=== PATIENT | female | born 1950 | race Caucasian/White ===

== ENCOUNTER 2021-08-17 13:22 | Outpatient (REF) | payer MEDICARE, OTHER, SELFPAY ==
--- NOTE | ~2021-08-17 | XR_ITS ---
EXAMINATION: XR CHEST CLINICAL INFORMATION: Chronic cough COMPARISON: None TECHNIQUE: 2 views of the chest were obtained. FINDINGS: The cardiac silhouette is slightly enlarged. Hilar and mediastinal contours are unremarkable. The lungs are clear. There is no pleural effusion or pneumothorax. There are mild degenerative changes of the spine. XR/XR chest 2V IMPRESSION: Slightly enlarged cardiac silhouette otherwise unremarkable exam.
[2021-08-17 15:09] LABS: MANUAL DIFF FLAG NO
[2021-08-17 15:17] LABS: Basophils Percent Auto 0.5 % (0-2); Eosinophils Absolute Auto 0.1 X10*3/uL (0.0-0.4); Hematocrit 41.9 % (37.0-47.0); Hemoglobin 13.8 g/dl (12.0-16.0); Imm Gran Abs Auto 0.01 X10*3/uL (0.00-0.03); Imm Gran Pct Auto 0.2 % (0.0-0.4); Lymphocytes Absolute Auto 2.5 X10*3/uL (1.2-4.9); Lymphocytes Percent Auto 40.1 % (20-40); Mean Corpuscular HGB Conc 32.9 g/dl (31.0-35.0); Mean Corpuscular Hemoglobin 29.9 pg (27.0-33.0); Mean Corpuscular Volume 90.7 fL (80.0-98.0); Mean Platelet Volume 10.1 fL (9.4-12.3); Monocytes Absolute Auto 0.4 X10*3/uL (0.1-1.2); Monocytes Percent Auto 6.7 % (2-11); Neutrophils Absolute Auto 3.2 x10*3/uL (2.0-8.3); Neutrophils Percent Auto 51.5 % (45-73); Platelet Count 281 X10*3/uL (160-400); Red Blood Count 4.62 X10*6/uL (4.20-5.50); Red Cell Distribution Width 13.6 % (11.0-16.0); White Blood Count 6.2 X10*3/uL (4.8-10.8)
[2021-08-17 16:09] LABS: Erythrocyte Sedimentation Rate 5 MM/HR (0-20)
[2021-08-18 11:40] LABS: IgA 88 mg/dL (70-320); IgG 906 mg/dL (600-1540); IgM 91 mg/dL (50-300)
== END 2021-08-17 13:23 | disposition home or self-care (01) ==
LOC: HO.XRAY 13:22
PROVIDERS: PCP Internal Medicine; Visit Provider Hospitalist
DX: J31.0 Chronic rhinitis (principal); J45.909 Unspecified asthma, uncomplicated; R05.3 Chronic cough
CPT/HCPCS: 36415; 71046; 82784; 82785; 85025; 85652; 86003; 99202

== ENCOUNTER 2021-08-31 13:42 | Outpatient (REF) | payer MEDICARE, OTHER, SELFPAY ==
--- NOTE | 2021-08-31 16:49 | PFT_ITS ---
FLOWS: FEV1 59% of predicted at 1.14 L. FVC 52% of predicted at 1.65 L. FEV1 to FVC ratio of 0.85. No bronchodilator response. LUNG VOLUMES: Total lung capacity 78% of predicted at 3.60 L. Residual volume 106% of predicted at 2.22 L. Slow vital capacity 55% of predicted at 1.38 L. Expiratory reserve volume 68% of predicted at 0.37 L. Diffusion capacity is mildly decreased, diffusion capacity corrects to normal after adjustment for alveolar ventilation. IMPRESSION: Moderate restrictive ventilatory defect with no bronchodilator response. This test result suggests underlying pulmonary parenchymal or vascular disease. Clinical correlation is advised. Liu Arnett MD AP/MODL / [id number]
== END 2021-08-31 13:43 | disposition home or self-care (01) ==
LOC: HO.RESP 13:42
PROVIDERS: PCP Internal Medicine; Visit Provider Hospitalist
DX: J31.0 Chronic rhinitis (principal); J45.909 Unspecified asthma, uncomplicated; R05.3 Chronic cough
CPT/HCPCS: 94060; 94727; 94729

== ENCOUNTER → 2021-09-14 14:14 | Outpatient (BNVA) | payer MEDICARE, OTHER, SELFPAY | PROVIDERS: PCP Internal Medicine; Visit Provider Hospitalist | DX: R05.3 Chronic cough (principal); J45.909 Unspecified asthma, uncomplicated; J31.0 Chronic rhinitis; J98.4 Other disorders of lung | CPT/HCPCS: 99212 ==

== ENCOUNTER 2021-12-04 10:32 | Outpatient (REF) | payer MEDICARE, OTHER, SELFPAY ==
--- NOTE | ~2021-12-04 | CT_ITS ---
EXAMINATION: CT CHEST WITHOUT CONTRAST CLINICAL INFORMATION: Previous chest x-ray August 2021 COMPARISON: Other disorder of lung TECHNIQUE: Multidetector volumetric CT imaging of the chest was done. Axial MIP volume rendering provided. Sagittal and coronal reformatted images were obtained. This CT examination was performed using dose optimization techniques as appropriate, variously including the following: *Automated exposure control *Adjustment of mA and/or kV according to patient size (this includes techniques or standardized protocols for targeted exams where dose is matched to indication/reason for exam; i.e. 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 There is focal bronchiectasis seen in the lateral segment of the right middle lobe. There is a more peripheral nodule measures 5 x 12 mm axial image 343 series 5. This may represent focal mucus plugging. Comparison with old exams if available is recommended. There is minimal scarring or subsegmental atelectasis at the lung bases. MEDIASTINUM: The heart is slightly enlarged. There is a very small pericardial effusion. The ascending thoracic aorta is upper normal in size measuring 4 cm. The aortic arch and descending thoracic aorta are normal in caliber. There are small thyroid nodules. By size criteria for the patient's age. Do not warrant follow-up. There are no enlarged hilar or mediastinal lymph nodes. PLEURA: There is no pleural effusion. No pleural mass or thickening. AXILLA: No lymphadenopathy. UPPER ABDOMEN: The stomach is not distended however there is question of diffuse wall thickening of the stomach. There may be a small posterior gastric diverticulum containing air axial image 49 series 3. OSSEOUS STRUCTURES: There are degenerative changes of the spine. CT/CT chest wo con IMPRESSION: Focal bronchiectasis in the lateral segment of the right middle lobe and more peripheral 5 x 12 mm nodule. This may represent focal mucus plugging or endobronchial soft tissue opacification. Comparison with old outside exams if available is recommended. Otherwise short-term follow-up chest CT should be considered in 3 months. Slightly enlarged heart. Upper normal-size thoracic aorta. Question gastric wall thickening. Clinical correlation and endoscopy or upper GI follow-up recommended. Fleischner guidelines were followed.
== END 2021-12-04 10:33 | disposition home or self-care (01) ==
LOC: HO.CT 10:32
PROVIDERS: Visit Provider Hospitalist
DX: J98.4 Other disorders of lung (principal); R05.3 Chronic cough; R94.2 Abnormal results of pulmonary function studies
CPT/HCPCS: 71250

== ENCOUNTER → 2022-02-08 14:41 | Outpatient (BNVA) | payer MEDICARE, OTHER, SELFPAY | PROVIDERS: PCP Internal Medicine; Visit Provider Hospitalist | DX: J31.0 Chronic rhinitis (principal); J45.909 Unspecified asthma, uncomplicated; J98.4 Other disorders of lung; R05.3 Chronic cough; R91.1 Solitary pulmonary nodule | CPT/HCPCS: 99212 ==

== ENCOUNTER → 2022-03-04 14:01 | Outpatient (BNVA) | payer MEDICARE, OTHER, SELFPAY | PROVIDERS: PCP Internal Medicine; Visit Provider Hospitalist | DX: J45.909 Unspecified asthma, uncomplicated (principal); J98.4 Other disorders of lung; R05.3 Chronic cough; R91.1 Solitary pulmonary nodule; E04.1 Nontoxic single thyroid nodule; K29.70 Gastritis, unspecified, without bleeding | CPT/HCPCS: 99212 ==

== ENCOUNTER → 2022-07-15 14:32 | Outpatient (BNVA) | payer MEDICARE, OTHER, SELFPAY | PROVIDERS: PCP Internal Medicine; Visit Provider Hospitalist | DX: R91.1 Solitary pulmonary nodule (principal); J31.0 Chronic rhinitis; J45.909 Unspecified asthma, uncomplicated; R05.3 Chronic cough; J98.4 Other disorders of lung; E04.1 Nontoxic single thyroid nodule; K29.70 Gastritis, unspecified, without bleeding | CPT/HCPCS: 99212 ==

== ENCOUNTER 2022-07-29 15:08 | Outpatient (REF) | payer MEDICARE, OTHER, SELFPAY ==
--- NOTE | ~2022-07-29 | CT_ITS ---
EXAMINATION: CT CHEST WITHOUT CONTRAST CLINICAL INFORMATION: Pulmonary nodule COMPARISON: Previous chest CT November 2021 TECHNIQUE: Multidetector volumetric CT imaging of the chest was done. Axial MIP volume rendering provided. Sagittal and coronal reformatted images were obtained. This CT examination was performed using dose optimization techniques as appropriate, variously including the following: *Automated exposure control *Adjustment of mA and/or kV according to patient size (this includes techniques or standardized protocols for targeted exams where dose is matched to indication/reason for exam; i.e. extremities or head) *Use of iterative reconstruction technique DLP: 163 mGy-cm FINDINGS: LUNGS: There is biapical pleural and parenchymal scarring. There is focal bronchiectasis in the lateral segment of the right middle lobe. There is a stable 5 x 12 mm more peripheral lateral segment right middle lobe nodule, question representing plugging. The lungs are otherwise clear. MEDIASTINUM: Upper normal-size heart. Small pericardial effusion. Upper normal-size ascending thoracic aorta measuring 4 cm. No hilar or mediastinal lymphadenopathy. CORONARY ARTERY CALCIFICATION: None visualized on this study. PLEURA: There is no pleural effusion. No pleural mass or thickening. AXILLA: No lymphadenopathy. UPPER ABDOMEN: Unremarkable. OSSEOUS STRUCTURES: Mild scoliosis and degenerative changes of the spine. CT/CT chest wo IV con IMPRESSION: Stable 5 x 12 mm lateral segment right middle lobe nodule probably representing mucous plugging and focal bronchiectasis. Stable biapical pleural and parenchymal scarring. Upper normal-size heart and ascending thoracic aorta. Small pericardial effusion. Fleischner guidelines were followed.
== END 2022-07-29 15:09 | disposition home or self-care (01) ==
LOC: HO.CT 15:08
PROVIDERS: PCP Internal Medicine; Visit Provider Hospitalist
DX: R91.1 Solitary pulmonary nodule (principal)
CPT/HCPCS: 71250

== ENCOUNTER → 2022-09-02 14:28 | Outpatient (BNVA) | payer MEDICARE, OTHER, SELFPAY | PROVIDERS: PCP Internal Medicine; Visit Provider Hospitalist | DX: J45.909 Unspecified asthma, uncomplicated (principal); R05.3 Chronic cough; R91.1 Solitary pulmonary nodule; J31.0 Chronic rhinitis; J98.4 Other disorders of lung; E04.1 Nontoxic single thyroid nodule; K29.70 Gastritis, unspecified, without bleeding | CPT/HCPCS: 99212 ==

== ENCOUNTER 2023-02-26 15:08 | Outpatient (REF) | payer MEDICARE, OTHER, SELFPAY ==
--- NOTE | ~2023-02-26 | CT_ITS ---
EXAMINATION: CT CHEST WITHOUT CONTRAST CLINICAL INFORMATION: Solitary pulmonary nodule COMPARISON: CT chest 07/29/2022, 12/04/2021. TECHNIQUE: Multidetector volumetric CT imaging of the chest was done. Axial MIP volume rendering provided. Sagittal and coronal reformatted images were obtained. This CT examination was performed using dose optimization techniques as appropriate, variously including the following: *Automated exposure control *Adjustment of mA and/or kV according to patient size (this includes techniques or standardized protocols for targeted exams where dose is matched to indication/reason for exam; i.e. 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 LUNGS: The lungs are well-expanded with irregular-appearing bronchiectasis, right middle lobe. Previously seen nodule or debris within this segment has significantly improved since 12/04/2021 with residual debris or nodule seen. It measures 4 mm on axial image 336/5. Focal atelectatic changes are seen in the left lung apex. There is bilateral apical scarring and pleural thickening. MEDIASTINUM: There is a 1 cm hypodense nodule, left thyroid lobe. Also visualized is a 3 mm calcification anterior to this nodule. The right thyroid lobe is normal. Central trachea and the bronchi are widely patent. Heart size and the great vessels are normal caliber. No pericardial effusion seen. Ascending aorta measures 3.8 x 3.6 cm. CORONARY ARTERY CALCIFICATION: Mild coronary artery calcifications are seen. PLEURA: There is no pleural effusion. No pleural mass or thickening. AXILLA: Shotty lymph nodes are seen in bilateral axilla. UPPER ABDOMEN: Visualized liver, spleen, pancreas and bilateral adrenal glands are unremarkable. OSSEOUS STRUCTURES: No aggressive lytic or sclerotic process seen. CT/CT chest wo IV con IMPRESSION: No change in bronchiectasis in the right middle lobe. Previous nodule or internal debris within the bronchus has significantly improved since 12/04/2021. No additional lesions seen. Left thyroid nodule. Recommend ultrasound correlation. Fleischner guidelines were followed.
== END 2023-02-26 15:09 | disposition home or self-care (01) ==
LOC: HO.CT 15:08
PROVIDERS: PCP Internal Medicine; Visit Provider Hospitalist
DX: R91.1 Solitary pulmonary nodule (principal)
CPT/HCPCS: 71250

== ENCOUNTER → 2023-04-11 14:36 | Outpatient (BNVA) | payer MEDICARE, OTHER, SELFPAY | PROVIDERS: PCP Internal Medicine; Visit Provider Hospitalist | DX: R05.3 Chronic cough (principal); J98.4 Other disorders of lung; J45.909 Unspecified asthma, uncomplicated; J31.0 Chronic rhinitis; D50.9 Iron deficiency anemia, unspecified; E04.1 Nontoxic single thyroid nodule; R91.1 Solitary pulmonary nodule | CPT/HCPCS: 99212 ==

== ENCOUNTER 2023-10-09 14:26 | Outpatient (AMB) | payer MEDICARE, OTHER, SELFPAY ==
[2023-10-09 14:35] VITALS: BP 122/62; PULSE 78; O2SAT 97; BMI 19.8
--- NOTE | 2023-10-09 14:35 | A.OFFVIS_ITS ---
Intake Vital Signs 10/09/23 14:35 Height 5 ft 1 in Weight 104 lb 11.513 oz BMI 19.8 BP 122/62 Blood Pressure Location Lt brachial Position Sitting Pulse 78 Pulse Source Pulse Oximeter Pulse Oximetry (%) 97 Oxygen Delivery Method Room Air Intake Visit Reasons: CT Chest Follow Up Intake Note: pt is here for follow up and states she is feeling good with breathing but back pain is not good. [employer] Ebs Developer Required: No Allergies No Known Allergies Allergy (Verified 10/09/23 14:38) HPI HPI Comments History of Present Illness Details The patient is a 73-year-old woman with a known history of chronic cough. Patient states that she has had a cough for about 10 years. The cough tends to be hacking in nature. Sometimes she does get some chest congestion and also tickle in her throat and chest. she has tried short-acting beta agonist without any significant improvement of her symptoms. She denies any significant reflux disease. She does feel that she does have a component of a postnasal drip. Her daughter her gotten her nasal saline rinse. But, the patient has not used it. On further questioning the patient does have a history of cardiac disease. Her transplanter orchid is in [place]. She has been on cardioprotective medications for about 10 years. She has been on metoprolol for the same duration. Explained to her the metoprolol as a beta-eddie and some table may be sensitive to the beta eddie specially if there is any evidence of hyperreactive airways and asthma. As part of workup she has had an x-ray without any acute disease. We personally reviewed from [facility]. She does have some healed rib fractures. In addition to that she did have blood work done. No evidence of any significant eosinophilia. The patient has not had formal pulmonary function studies nor allergy testing. 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 She denies any mold in her house although she may have some in the basement. The patient does describe of certain symptoms specially while eating which she may get short of breath. The patient also has a history of iron deficiency anemia. Therefore is reasonable to assess her for celiac disease as this may also precipitate respiratory symptoms. 09/14/2021 the patient is here for a pulmonary follow-up visit. The patient overall is doing about the same. She still having her episodic cough. Moderate severity. We did review her laboratory data without any significant allergic reactions or eosinophilia. We did review her pulmonary function studies together. It appears that she has evidence of small airways disease and therefore likely has a component of hyperreactive airways. She stills takes a beta-eddie and likely that is contributing to some potential bronchospasms and cough. However in addition to that the patient has evidence of a restrictive ventilatory defect with total lung capacity of 78% predicted. In addition to that her diffusing capacity is decreased moderately. the patient's chest x-ray demonstrated no acute disease therefore is really nondiagnostic. Based on her ongoing symptoms and her abnormal pulmonary function studies the patient will benefit from additional imaging. I do believe a CT scan of the chest would be for an and further addressing her ongoing symptoms and now with abnormal pulmonary function studies. 02/08/2022 the patient is here for a pulmonary follow-up visit. Patient overall continues to have her cough. The cough is intermittent and moderate severity. I did provide with rescue inhaler but she has not used it. I will have her nurse again teach her how to use it with a spacer to give her some reassurance an additional guidance. A nurse did spend some time with her answering all her questions and making sure she was comfortable with the inhaler. In the meantime we did review her CT scan of the chest which demonstrated a 1.2 cm pulmonary nodule. This is the only CT scan she has had so that we have no comparisons. Based on the solid nodule in the size and also her ongoing other symptoms of discomfort in her abdomen and also in her left hip it would help to get a PET scan to assess the metabolic activity of the nodule but also to assess if there is any involvement in other areas specially this is a malignant process. I will go ahead and request a PET scan at this time. Will follow-up after the PET scan. In the meantime I do want her to use the inhaler as needed as a trial to see if she has improvement after using the inhaler. also to note, the patient has been having some abdominal discomfort and the CT scan of the chest did demonstrate what appeared to be thickening of the stomach with a diverticulum. Therefore she was referred to GI and awaiting an evaluation. 03/04/2022 the patient is here for a pulmonary follow-up visit. Overall she is nervous about the PET scan results. I did reassure her that the pulmonary nodule did not show any FDG activity which is reassuring. We still need to follow it to make sure that there isn't any discrepancies. However the PET scan did demonstrate that she does have thyroid nodules that need to be further followed up. This made her anxious but she was reassured. explained to her that CT scan is not a good modality for the pulmonary nodules and will need ultrasound of the thyroid. This can be arranged by primary care or the patient may refer to endocrinology. in addition to that she was noted to have some hypermetabolic activity on the stomach area. She does have a GI doctor and hopefully they can evaluate that area further during her visit. In the meantime she does continue with reflux diet and continues the omeprazole which appears to be helping and also diminishing her cough. 07/15/2022 the patient is here for a pulmonary follow-up visit. After the PET scan the patient did follow-up with her primary care doctor and has been getting ultrasound of the thyroid. She also did follow-up with GI doctor regarding the above findings. Nothing concerning was found. The patient does have multiple nodules, 1 nodule measuring 1 cm and the other 1.2 cm. Patient also has large areas pulmonary density measuring 2.6 cm. The patient did have a reassuring PET scan without any significant FDG activity. However patient continues to have cough in addition to some chest discomfort. She does have a positive family history of lung cancer in the family. The patient will go ahead for a CT scan 6 months from her previous 1 which would be August 2022. in the meantime the patient been having episodes of coughing. We talked about trying to use the inhaler. She does have a short-acting beta agonist. She brought in with go to the extractions on how to use it. In addition to that she does complaint of postnasal drip which is typically with liquidy. It causes her to have cough as well. Moderate severity. We talked about the medications again try. She does not like to take anything longstanding. Therefore Atrovent nasal spray may be a good option to treat vasomotor rhinitis and dry up secretions. However, he needs to make sure she does not have any evidence of a coma. She does have a we I would doctor's appointment coming up soon. Therefore, I gave her a prescription and she can take it with her. If her eyes are okay that she can go ahead and start the ipratropium nasal spray as needed. We did a use weather. Patient is also having improving symptoms with reflux diet. The significant heartburn symptoms of she does have atopy. She is also diagnosed with osteopenia. Therefore, the patient needs to be of her omeprazole to avoid further bone loss. She has will try Pepcid. She will need to do with the reflux diet. 09/02/2022 the patient is here for a pulmonary follow-up visit. Overall the patient has been feeling well. She continues to have episodic cough. Usually nonproductive in nature. She did bring her inhaler in we were able to teacher again her use it correctly. She is having some issues with her spacer. Therefore she will use the inhaler without 1. she is not interested in taking any come medications at this time. We again looked at her recent CT scan of the chest that she has had in July 2022. It appears that she does have a areas of mosaic pattern in her trapping. Explained to her that this is consistent w ith her small airways disease and component of wheezing in cough variant asthma. On examination she did have wheezing. I did encourage her to use the inhaler. After she use the rescue inhaler she had increased cough. Explained to her that does the airways trying to open further from the medication. Her symptoms did improve after using the inhaler. We did review her CT scan also demonstrating stable pulmonary nodules which is reassuring. She has is elongated density in the right middle lobe which is PET negative. Although it is intermediate size. Could be mucus impaction of the airway. The patient also has some bronchiectatic changes. Will go ahead and provide her with a flutter valve to see if she can provide better bronchopulmonary hygiene and mucus clearance. The patient is concerned that she could have cancer. I have reassured her at lease in the CT scan that there is nothing that is progressing changing. Due to the size of the right middle lobe density will plan to repeat the CT scan in 6 months time. 04/11/2023 the patient is here for pulmonary follow-up visit. Overall she is doing well from a respiratory status. The sciatic cough. Mild intermittent. Has not had to use her rescue inhaler. The patient did need to have biopsy of the thyroid nodule. She is awaiting the results. In the meantime she also had a CT scan of the chest which was personally by me from February 2023. It appears some of the nodular densities have improved, although still present. She still has bronchiectatic changes. Will plan to repeat the CT scan in 1 year. 10/09/2023 the patient is here for pulmonary follow-up visit. Overall the patient continues to be able to same. She still complains of a chronic cough. Thvf-ty-weauhhic severity. At times is productive. Does not really respond to the rescue inhaler. Denies any fevers or chills. She denies any chest pains. We did review her last CT scan of the chest from February 2023 with a describe some degree of bronchiectatic changes. Her nodular densities are improve which is reassuring. The patient does work on her reflux diet. Will provide her with a Acapella valve for chest physical therapy. If this is effective than she can continue the bronchopulmonary hygiene. Otherwise the patient should try a course of azithromycin 3 times a week to see if this provides some improvement of her symptoms in view of the bronchiectasis. [facility] Medical History (Updated 10/13/23 @ 22:51 by Nelson Ruiz MD) Bronchiectasis Gastritis Thyroid nodule Osteoporosis Hypertension Abnormal PFTs (pulmonary function tests) Chronic restrictive lung disease Chronic rhinitis Asthma Chronic cough Surgical History (Updated 02/07/22 @ 11:12 by Rody Waters PA-C) History of tonsillectomy History of colonoscopy Family History (Updated 02/07/22 @ 11:14 by Rody Waters PA-C) Father CVA (cerebral vascular accident) Hypertension Mother Colon polyps Breast cancer Brother Prostate cancer Social History Patient Tobacco Use Status: Never used Tobacco Review of Systems Const Denies night sweats ENT Denies change in voice, Denies lip swelling, Denies mouth pain, Reports nasal congestion, Reports nasal discharge, Reports post nasal drip and Denies tongue swelling Card Denies chest pain Resp Reports cough GI Reports dyspepsia and Reports heartburn Musc Denies no additional complaints Neuro Denies Neuro-related abnormal movements Psych Denies no additional complaints Popeye/Lymph Denies easy bleeding and Denies lymphadenopathy Aller/Immun Denies lip swelling and Denies tongue swelling Physical Exam Vital Signs: Last Vital Signs Pulse 78 10/09/23 14:35 BP 122/62 10/09/23 14:35 Pulse Ox 97 10/09/23 14:35 Oxygen Delivery Method Room Air 10/09/23 14:35 BMI result Body Mass Index 19.8 Const General: alert HEENT General nose exam: Abnormal mucous membranes and turbinates present and Nasal discharge present Throat: Yes cobblestoning Neck Neck: Yes normal visual inspection, Yes full ROM and Yes no lymphadenopathy Chest Chest palpation & inspection: normal inspection of the chest Resp Effort & Inspection: normal respiratory effort Auscultation: clear to auscultation bilaterally and no wheezes Cardio Rate: regular rate Rhythm: regular rhythm Heart sounds: S1 normal heart sound present and S2 normal heart sound present GI Palpation (GI): Soft to palpation and nontender Auscultation: normal bowel sounds Skin General skin exam: rashes and/or lesions noted Results Reviewed Results Reviewed: [address] [address] [address] Scan Report Signed Patient: Yesesnia Burt MR#: [id number] : 1950 Acct:[id number] Age/Sex: 73 / F ADM Date: 02/26/23 Loc: HO.CT Attending Dr: Nelson Ruiz MD Ordering Physician: Nelson Ruiz MD Date of Service: 02/26/23 Procedure(s): CT chest wo IV con Accession Number(s): [id number] cc: Nelson Ruiz MD~ EXAMINATION: CT CHEST WITHOUT CONTRAST CLINICAL INFORMATION: Solitary pulmonary nodule COMPARISON: CT chest 07/29/2022, 12/04/2021. TECHNIQUE: Multidetector volumetric CT imaging of the chest was done. Axial MIP volume rendering provided. Sagittal and coronal reformatted images were obtained. This CT examination was performed using dose optimization techniques as appropriate, variously including the following: *Automated exposure control *Adjustment of mA and/or kV according to patient size (this includes techniques or standardized protocols for targeted exams where dose is matched to indication/reason for exam; i.e. extremities or head) *Use of iterative reconstruction technique DLP: 84 mGy-cm FINDINGS: WASTE COLLECTOR: Well-inflated lungs. LUNGS: The lungs are well-expanded with irregular-appearing bronchiectasis, right middle lobe. Previously seen nodule or debris within this segment has significantly improved since 12/04/2021 with residual debris or nodule seen. It measures 4 mm on axial image 336/5. Focal atelectatic changes are seen in the left lung apex. There is bilateral apical scarring and pleural thickening. MEDIASTINUM: There is a 1 cm hypodense nodule, left thyroid lobe. Also visualized is a 3 mm calcification anterior to this nodule. The right thyroid lobe is normal. Central trachea and the bronchi are widely patent. Heart size and the great vessels are normal caliber. No pericardial effusion seen. Ascending aorta measures 3.8 x 3.6 cm. CORONARY ARTERY CALCIFICATION: Mild coronary artery calcifications are seen. PLEURA: There is no pleural effusion. No pleural mass or thickening. AXILLA: Shotty lymph nodes are seen in bilateral axilla. UPPER ABDOMEN: Visualized liver, spleen, pancreas and bilateral adrenal glands are unremarkable. OSSEOUS STRUCTURES: No aggressive lytic or sclerotic process seen. CT/CT chest wo IV con IMPRESSION: No change in bronchiectasis in the right middle lobe. Previous nodule or internal debris within the bronchus has significantly improved since 12/04/2021. No additional lesions seen. Left thyroid nodule. Recommend ultrasound correlation. Fleischner guidelines were followed. 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[employer] Handler: JEROME Assessment & Plan Assessment & Plan (1) Right middle lobe pulmonary nodule: Comment: (5x12mm on 11/[address]; significant improvement in 02/2023 Code(s): R91.1 - Solitary pulmonary nodule (2) Chronic rhinitis: Code(s): J31.0 - Chronic rhinitis (3) Asthma: Code(s): J45.909 - Unspecified asthma, uncomplicated Qualifiers: Asthma complication type: uncomplicated Asthma persistence: persistent Asthma severity: moderate Qualified Code(s): J45.40 - Moderate persistent asthma, uncomplicated (4) Chronic cough: Code(s): R05.3 - Chronic cough (5) Chronic restrictive lung disease: Code(s): J98.4 - Other disorders of lung (6) Thyroid nodule: Code(s): E04.1 - Nontoxic single thyroid nodule (7) Bronchiectasis: Code(s): J47.9 - Bronchiectasis, uncomplicated Qualifiers: Bronchiectasis type: uncomplicated Qualified Code(s): J47.9 - Bronchiectasis, uncomplicated Plan HOB elevated PASCUAL as needed CPT with acapella valve relux diet trial azithromycin MWF F/U 4-6 months Medications: New azithromycin Take 1 tablet on Friday/Friday/Friday 250 mg PO 3XW 28 days 12 tabs 0RF K21.9 - Gastro-esophageal reflux disease without esophagitis Coding Level of Care Code Est Pt Level 4 (30532) Diagnoses Right middle lobe pulmonary nodule R91.1 Chronic rhinitis J31.0 Moderate persistent asthma without complication J45.40 Asthma complication type: uncomplicated Asthma persistence: persistent Asthma severity: moderate Chronic cough R05.3 Chronic restrictive lung disease J98.4 Thyroid nodule E04.1 Bronchiectasis without complication J47.9 Bronchiectasis type: uncomplicated Time Spent (min) 17
== END 2023-10-09 15:03 | disposition home or self-care (01) ==
PROVIDERS: PCP Internal Medicine; Visit Provider Hospitalist
DX: R91.1 Solitary pulmonary nodule (principal); J31.0 Chronic rhinitis; J45.40 Moderate persistent asthma, uncomplicated; R05.3 Chronic cough; J98.4 Other disorders of lung; E04.1 Nontoxic single thyroid nodule; J47.9 Bronchiectasis, uncomplicated
CPT/HCPCS: 99214

== ENCOUNTER → 2023-10-09 14:26 | Outpatient (BNVA) | payer MEDICARE, OTHER, SELFPAY | PROVIDERS: PCP Internal Medicine; Visit Provider Hospitalist | DX: R91.1 Solitary pulmonary nodule (principal); J31.0 Chronic rhinitis; J45.40 Moderate persistent asthma, uncomplicated; J98.4 Other disorders of lung; J47.9 Bronchiectasis, uncomplicated; R05.3 Chronic cough; E04.1 Nontoxic single thyroid nodule | CPT/HCPCS: 99212 ==

== ENCOUNTER 2024-04-23 08:45 | Outpatient (REF) | payer MEDICARE, OTHER, SELFPAY ==
--- NOTE | ~2024-04-23 | CT_ITS ---
EXAMINATION: CT CHEST WITHOUT CONTRAST CLINICAL INFORMATION: Follow-up pulmonary nodule. COMPARISON: Prior chest CT examinations, most recently 02/26/2023. TECHNIQUE: Multidetector volumetric CT imaging of the chest was done. Axial MIP volume rendering provided. Sagittal and coronal reformatted images were obtained. This CT examination was performed using dose optimization techniques as appropriate, variously including the following: *Automated exposure control *Adjustment of mA and/or kV according to patient size (this includes techniques or standardized protocols for targeted exams where dose is matched to indication/reason for exam; i.e. extremities or head) *Use of iterative reconstruction technique DLP: 72 mGy-cm FINDINGS: SUPERVISOR FILLING AND PACKING: The lungs are symmetrically well-expanded and grossly clear. LUNGS: There is biapical pleural and parenchymal scarring. There is a stable focal bronchiectasis within the lateral segment of the right middle lobe. No new nodule, mass, infiltrate or groundglass opacity is seen. There is no generalized increase in peripheral septal markings. There is a mild mosaic attenuation pattern. There is mild generalized small airway thickening. The central airways appear patent. MEDIASTINUM: The thyroid is unremarkable. The ascending thoracic aorta is ectatic, measuring 3.9 x 3.9 cm (3:29). No huma aneurysm formation is seen. There is mild atherosclerotic calcification of the aortic arch. No sizable mediastinal or hilar lymphadenopathy is seen. CORONARY ARTERY CALCIFICATION: Very mild. PLEURA: There is no pleural effusion. No pleural mass or thickening. AXILLA: No lymphadenopathy. UPPER ABDOMEN: Unremarkable. OSSEOUS STRUCTURES: There is multi-level cervicothoracic spondylosis. No acute or aggressive osseous abnormality is seen. CT/CT chest wo IV con IMPRESSION: 1. There is a stable focus of bronchiectatic change within the lateral segment of the right middle lobe. 2. No pulmonary nodule, mass, infiltrate or groundglass opacity is seen. 3. There is a mild mosaic attenuation pattern, and mild generalized small airway thickening is seen, suggesting small airways disease secondary to an infectious or inflammatory etiology. Please correlate clinically. 4. There is ectasia of the ascending thoracic aorta, without huma aneurysm formation. 5. There is very mild coronary artery atherosclerotic calcification. 6. There is multi-level cervicothoracic spondylosis. No aggressive osseous lesion is seen. Fleischner guidelines were followed.
== END 2024-04-23 08:46 | disposition home or self-care (01) ==
LOC: HO.CT 08:45
PROVIDERS: PCP Internal Medicine; Visit Provider Hospitalist
DX: R91.1 Solitary pulmonary nodule (principal)
CPT/HCPCS: 71250

== ENCOUNTER 2024-05-11 09:43 | Outpatient (AMB) | payer MEDICARE, OTHER, SELFPAY ==
[2024-05-11 09:50] VITALS: BP 132/70; PULSE 64; O2SAT 99; BMI 19.8
--- NOTE | 2024-05-11 09:50 | A.OFFVIS_ITS ---
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 Patient states that she has had a cough for about 10 years. The cough tends to be hacking in nature. Sometimes she does get some chest congestion and also tickle in her throat and chest. she has tried short-acting beta agonist without any significant improvement of her symptoms. She denies any significant reflux disease. She does feel that she does have a component of a postnasal drip. Her daughter her gotten her nasal saline rinse. But, the patient has not used it. On further questioning the patient does have a history of cardiac disease. 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 She has been on cardioprotective medications for about 10 years. She has been on metoprolol for the same duration. Explained to her the metoprolol as a beta-eddie and some table may be sensitive to the beta eddie specially if there is any evidence of hyperreactive airways and asthma. As part of workup she has had an x-ray without any acute disease. We personally reviewed from [facility]. She does have some healed rib fractures. In addition to that she did have blood work done. No evidence of any significant eosinophilia. The patient has not had formal pulmonary function studies nor allergy testing. 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 She denies any mold in her house although she may have some in the basement. The patient does describe of certain symptoms specially while eating which she may get short of breath. The patient also has a history of iron deficiency anemia. Therefore is reasonable to assess her for celiac disease as this may also precipitate respiratory symptoms. 09/14/2021 the patient is here for a pulmonary follow-up visit. The patient overall is doing about the same. She still having her episodic cough. Moderate severity. We did review her laboratory data without any significant allergic reactions or eosinophilia. We did review her pulmonary function studies together. It appears that she has evidence of small airways disease and therefore likely has a component of hyperreactive airways. She stills takes a beta-eddie and likely that is contributing to some potential bronchospasms and cough. However in addition to that the patient has evidence of a restrictive ventilatory defect with total lung capacity of 78% predicted. In addition to that her diffusing capacity is decreased moderately. the patient's chest x-ray demonstrated no acute disease therefore is really nondiagnostic. Based on her ongoing symptoms and her abnormal pulmonary function studies the patient will benefit from additional imaging. I do believe a CT scan of the chest would be for an and further addressing her ongoing symptoms and now with abnormal pulmonary function studies. 02/08/2022 the patient is here for a pulmonary follow-up visit. Patient overall continues to have her cough. The cough is intermittent and moderate severity. I did provide with rescue inhaler but she has not used it. I will have her nurse again teach her how to use it with a spacer to give her some reassurance an additional guidance. A nurse did spend some time with her answering all her questions and making sure she was comfortable with the inhaler. In the meantime we did review her CT scan of the chest which demonstrated a 1.2 cm pulmonary nodule. This is the only CT scan she has had so that we have no comparisons. Based on the solid nodule in the size and also her ongoing other symptoms of discomfort in her abdomen and also in her left hip it would help to get a PET scan to assess the metabolic activity of the nodule but also to assess if there is any involvement in other areas specially this is a malignant process. I will go ahead and request a PET scan at this time. Will follow-up after the PET scan. In the meantime I do want her to use the inhaler as needed as a trial to see if she has improvement after using the inhaler. also to note, the patient has been having some abdominal discomfort and the CT scan of the chest did demon strate what appeared to be thickening of the stomach with a diverticulum. Therefore she was referred to GI and awaiting an evaluation. 03/04/2022 the patient is here for a pulmonary follow-up visit. Overall she is nervous about the PET scan results. I did reassure her that the pulmonary nodule did not show any FDG activity which is reassuring. We still need to follow it to make sure that there isn't any discrepancies. However the PET scan did demonstrate that she does have thyroid nodules that need to be further followed up. This made her anxious but she was reassured. explained to her that CT scan is not a good modality for the pulmonary nodules and will need ultrasound of the thyroid. This can be arranged by primary care or the patient may refer to endocrinology. in addition to that she was noted to have some hypermetabolic activity on the stomach area. She does have a GI doctor and hopefully they can evaluate that area further during her visit. In the meantime she does continue with reflux diet and continues the omeprazole which appears to be helping and also diminishing her cough. 07/15/2022 the patient is here for a pulmonary follow-up visit. After the PET scan the patient did follow-up with her primary care doctor and has been getting ultrasound of the thyroid. She also did follow-up with GI doctor regarding the above findings. Nothing concerning was found. The patient does have multiple nodules, 1 nodule measuring 1 cm and the other 1.2 cm. Patient also has large areas pulmonary density measuring 2.6 cm. The patient did have a reassuring PET scan without any significant FDG activity. However patient continues to have cough in addition to some chest discomfort. She does have a positive family history of lung cancer in the family. The patient will go ahead for a CT scan 6 months from her previous 1 which would be August 2022. in the meantime the patient been having episodes of coughing. We talked about trying to use the inhaler. She does have a short-acting beta agonist. She brought in with go to the extractions on how to use it. In addition to that she does complaint of postnasal drip which is typically with liquidy. It causes her to have cough as well. Moderate severity. We talked about the medications again try. She does not like to take anything longstanding. Therefore Atrovent nasal spray may be a good option to treat vasomotor rhinitis and dry up secretions. However, he needs to make sure she does not have any evidence of a coma. She does have a we I would doctor's appointment coming up soon. Therefore, I gave her a prescription and she can take it with her. If her eyes are okay that she can go ahead and start the ipratropium nasal spray as needed. We did a use weather. Patient is also having improving symptoms with reflux diet. The significant heartburn symptoms of she does have atopy. She is also diagnosed with osteopenia. Therefore, the patient needs to be of her omeprazole to avoid further bone loss. She has will try Pepcid. She will need to do with the reflux diet. 09/02/2022 the patient is here for a pulmonary follow-up visit. Overall the patient has been feeling well. She continues to have episodic cough. Usually nonproductive in nature. She did bring her inhaler in we were able to teacher again her use it correctly. She is having some issues with her spacer. The refore she will use the inhaler without 1. she is not interested in taking any come medications at this time. We again looked at her recent CT scan of the chest that she has had in July 2022. It appears that she does have a areas of mosaic pattern in her trapping. Explained to her that this is consistent with her small airways disease and component of wheezing in cough variant asthma. On examination she did have wheezing. I did encourage her to use the inhaler. After she use the rescue inhaler she had increased cough. Explained to her that does the airways trying to open further from the medication. Her symptoms did improve after using the inhaler. We did review her CT scan also demonstrating stable pulmonary nodules which is reassuring. She has is elongated density in the right middle lobe which is PET negative. Although it is intermediate size. Could be mucus impaction of the airway. The patient also has some bronchiectatic changes. Will go ahead and provide her with a flutter valve to see if she can provide better bronchopulmonary hygiene and mucus clearance. The patient is concerned that she could have cancer. I have reassured her at lease in the CT scan that there is nothing that is progressing changing. Due to the size of the right middle lobe density will plan to repeat the CT scan in 6 months time. 04/11/2023 the patient is here for pulmonary follow-up visit. Overall she is doing well from a respiratory status. The sciatic cough. Mild intermittent. Has not had to use her rescue inhaler. The patient did need to have biopsy of the thyroid nodule. She is awaiting the results. In the meantime she also had a CT scan of the chest which was personally by me from February 2023. It appears some of the nodular densities have improved, although still present. She still has bronchiectatic changes. Will plan to repeat the CT scan in 1 year. 10/09/2023 the patient is here for pulmonary follow-up visit. Overall the patient continues to be able to same. She still complains of a chronic cough. Azyl-yi-pnehhgsc severity. At times is productive. Does not really respond to the rescue inhaler. Denies any fevers or chills. She denies any chest pains. We did review her last CT scan of the chest from February 2023 with a describe some degree of bronchiectatic changes. Her nodular densities are improve which is reassuring. The patient does work on her reflux diet. Will provide her with a Acapella valve for chest physical therapy. If this is effective than she can continue the bronchopulmonary hygiene. Otherwise the patient should try a course of azithromycin 3 times a week to see if this provides some improvement of her symptoms in view of the bronchiectasis. 05/11/2024 the patient is here for a pulmonary follow-up visit. She is about the same. She is still coughing some chest congestion. Moderate severity. Although she has not been using the rescue inhaler. She does find the Acapella valve a very effective. She also did not take antibiotics. Seems to be more congested today. She did have a CT scan of the chest which we personally reviewed. No significant changes in the bronchiectatic changes. No nodular densities to be concerned about. At this point to believe that she should try the azithromycin based on her bronchiectasis and mucous plugging. I also did instruct her how to use her rescue inhaler and she can use at once or twice a day followed by the Acapella valve for proper chest physical therapy. She also does complain of a postnasal drip. Thin in consistency. Ykfi-ax-vuioigxh severity. Typically worse in the morning. This point she does not want to take too many medications will just continue to monitor that. [facility] Medical History (Updated 10/13/23 @ 22:51 by Nelson Ruiz MD) Bronchiectasis Gastritis Thyroid nodule Osteoporosis Hypertension Abnormal PFTs (pulmonary function tests) Chronic restrictive lung disease Chronic rhinitis Asthma Chronic cough Surgical History (Updated 02/07/22 @ 11:12 by Rody Waters PA-C) History of tonsillectomy History of colonoscopy Family History (Updated 02/07/22 @ 11:14 by Rody M May, PA-C) Father CVA (cerebral vascular accident) Hypertension Mother Colon polyps Breast cancer Brother Prostate cancer Social History Patient Tobacco Use Status: Never used Tobacco Review of Systems Const Denies night sweats ENT Denies change in voice, Denies lip swelling, Denies mouth pain, Reports nasal congestion, Reports nasal discharge, Reports post nasal drip and Denies tongue swelling Card Denies chest pain Resp Reports cough GI Reports dyspepsia and Reports heartburn Musc Denies no additional complaints Neuro Denies Neuro-related abnormal movements Psych Denies no additional complaints Popeye/Lymph Denies easy bleeding and Denies lymphadenopathy Aller/Immun Denies lip swelling and Denies tongue swelling Physical Exam Vital Signs: Last Vital Signs Pulse 64 05/11/24 09:50 BP 132/70 05/11/24 09:50 Pulse Ox 99 05/11/24 09:50 Oxygen Delivery Method Room Air 05/11/24 09:50 BMI result Body Mass Index 19.8 Const General: alert HEENT General nose exam: Abnormal mucous membranes and turbinates present and Nasal discharge present Throat: Yes cobblestoning Neck Neck: Yes normal visual inspection, Yes full ROM and Yes no lymphadenopathy Chest Chest palpation & inspection: normal inspection of the chest Resp Effort & Inspection: normal respiratory effort Auscultation: no wheezes Cardio Rate: regular rate Rhythm: regular rhythm Heart sounds: S1 normal heart sound present and S2 normal heart sound present GI Palpation (GI): Soft to palpation and nontender Auscultation: normal bowel sounds Skin General skin exam: rashes and/or lesions noted Assessment & Plan Assessment & Plan (1) Right middle lobe pulmonary nodule: Comment: (5x12mm on 11/[address]; significant improvement in 02/2023 Code(s): R91.1 - Solitary pulmonary nodule Category: Medical (2) Chronic rhinitis: Code(s): J31.0 - Chronic rhinitis Category: Medical (3) Asthma: Code(s): J45.909 - Unspecified asthma, uncomplicated Category: Medical Qualifiers: Asthma complication type: uncomplicated Asthma persistence: persistent Asthma severity: moderate Qualified Code(s): J45.40 - Moderate persistent asthma, uncomplicated (4) Chronic cough: Code(s): R05.3 - Chronic cough Category: Medical (5) Chronic restrictive lung disease: Code(s): J98.4 - Other disorders of lung Category: Medical (6) Thyroid nodule: Code(s): E04.1 - Nontoxic single thyroid nodule Category: Medical (7) Bronchiectasis: Code(s): J47.9 - Bronchiectasis, uncomplicated Category: Medical Qualifiers: Bronchiectasis type: uncomplicated Qualified Code(s): J47.9 - Bronchiectasis, uncomplicated Plan HOB elevated PASCUAL as needed CPT with acapella valve Start Azithromycin MWF x 3-4 weeks, then stop relux diet F/U 6-8 months Medications: Refilled azithromycin Take 1 tablet on Friday/Friday/Friday 250 mg PO 3XW 12 tabs 0RF 28 days K21.9 - Gastro-esophageal reflux disease without esophagitis albuterol sulfate 90 mcg/actuation 2 inhalations inhalation Q6H PRN 18 grams 12RF shortness of breath or wheezing 30 days J44.9 - Chronic obstructive pulmonary disease, unspecified Coding Level of Care Code Est Pt Level 4 (76276) Diagnoses Right middle lobe pulmonary nodule R91.1 Chronic rhinitis J31.0 Moderate persistent asthma without complication J45.40 Asthma complication type: uncomplicated Asthma persistence: persistent Asthma severity: moderate Chronic cough R05.3 Chronic restrictive lung disease J98.4 Thyroid nodule E04.1 Bronchiectasis without complication J47.9 Bronchiectasis type: uncomplicated Time Spent (min) 17
== END 2024-05-11 10:20 | disposition home or self-care (01) ==
PROVIDERS: PCP Internal Medicine; Visit Provider Hospitalist
DX: R91.1 Solitary pulmonary nodule (principal); J31.0 Chronic rhinitis; J45.40 Moderate persistent asthma, uncomplicated; R05.3 Chronic cough; J98.4 Other disorders of lung; E04.1 Nontoxic single thyroid nodule; J47.9 Bronchiectasis, uncomplicated
CPT/HCPCS: 99214

== ENCOUNTER → 2024-05-11 09:43 | Outpatient (BNVA) | payer MEDICARE, OTHER, SELFPAY | PROVIDERS: PCP Internal Medicine; Visit Provider Hospitalist | DX: R91.1 Solitary pulmonary nodule (principal); R05.3 Chronic cough; J45.40 Moderate persistent asthma, uncomplicated; J31.0 Chronic rhinitis; J98.4 Other disorders of lung; J47.9 Bronchiectasis, uncomplicated; E04.1 Nontoxic single thyroid nodule | CPT/HCPCS: 99212 ==

== ENCOUNTER 2024-10-11 10:41 | Outpatient (AMB) | payer MEDICARE, OTHER, SELFPAY ==
--- OUTSIDE RECORDS SUMMARY | 2024-10-11 10:43 | XMS_ITS ---
Author Organization [facility] Address [address] [place] [address] Care Team Providers Care Load Out Worker Name Role Phone Arvind ARRIAGA, Stephanie Primary Care Provider Unavail able Agustín Cannon Unavailable [phone] REASON FOR VISIT would like a call Encounters Encounter Location Date Provider Diagnosis [facility] [address] [place] [address] 06/08/2024 Agustín Cannon PLAN OF TREATMENT No Information
--- OUTSIDE RECORDS SUMMARY | 2024-10-11 10:43 | XMS_ITS ---
Author Organization [facility] Address [address] [place] [address] Care Team Providers Care Street And Building Decorator Name Role Phone Arvind ARRIAGA, Stephanie Primary Care Provider Unavail able Agustín Cannon Unavailable [phone] REASON FOR VISIT Exam, Stress Test & ECHO Encounters Encounter Location Date Provider Diagnosis [facility] [place] [address] [place] [address] 09/27/2024 Agustín Cannon PLAN OF TREATMENT No Information
--- OUTSIDE RECORDS SUMMARY | 2024-10-11 10:43 | XMS_ITS ---
Author Organization [facility] Address [address] [place] [address] Care Team Providers Care Chemist Physical Name Role Phone Arvind ARRIAGA, Stephanie Primary Care Provider Unavail able Agustín Cannon Unavailable [phone] Encounters Encounter Location Date Provider Diagnosis [facility] [address] [place] [address] 09/27/2024 Agustín Cannon PLAN OF TREATMENT No Information
--- OUTSIDE RECORDS SUMMARY | 2024-10-11 10:44 | XMS_ITS | Patient Health Record ---
Author Organization [facility] Address [address] [place] [address] Care Team Providers Care Baker Name Role Phone Arvind ARRIAGA Stephanie Primary Care Provider Unavail Agustín Pierce Unavailable [phone] ALLERGIES No Known Allergies REASON FOR REFERRAL No Information MEDICATIONS Medication SIG (Take, Route, Frequency, Duration) Notes Start Date End Date Status Famotidine 40 MG 1 tablet Orally QPM Active Alendronate Sodium 70 MG 1 tablet Orally QWeekly Active amLODIPine Besylate 2.5 MG TAKE 1 TABLET BY MOUTH EVERY MORNING for 90 Active Metoprolol Succinate ER 50 MG TAKE 1 TABLET BY MOUTH DAILY for 90 Active SOCIAL HISTORY Sex Assigned At : Social History Observation Description Sex Assigned At Unknown PROBLEMS Problem Type ICD Code Onset Dates Problem Status W/U Status Risk SNOMED Code Notes Problem Hypertension Unspecified (401.9) Active confirmed Low Essential hypertension (09953332) Problem Essential hypertension (I10) Active confirmed 66992025 Problem Nonrheumatic mitral (valve) insufficiency (I34.0) Active confirmed Mitral valve disorder (20766543) Problem Acquired insufficiency of aortic valve (I35.1) Active confirmed 98118282 Problem Osteoporosis (M81.0) Active confirmed Osteoporosis (16075981) Problem PVCs (premature ventricular contractions) (I49.3) Active confirmed 091453761 Encounters Encounter Location Date Provider Diagnosis [facility] [address] [place] [address] 06/08/2024 Agustín Cannon [facility] [address] [place] [address] 09/27/2024 Agustín Cannon [facility] - [address] [address] 09/27/2024 Agustín Cannon PLAN OF TREATMENT Pending Test Test Name Order Date Echocardiogram 09/24/2023 Echocardiogram 09/23/2022 Echocardiogram 09/20/2021 Echocardiogram 09/14/2020 Echocardiogram 09/15/2019 Echocardiogram 09/14/2018 Echocardiogram 09/11/2017 Echocardiogram 02/05/2016 Echocardiogram 01/20/2015 Exercise Tolerence Test (ETT) 01/20/2015 Exercise Tolerence Test (ETT) 02/05/2016 Exercise Tolerence Test (ETT) 09/11/2017 Exercise Tolerence Test (ETT) 09/14/2018 Exercise Tolerence Test (ETT) 09/15/2019 Exercise Tolerence Test (ETT) 09/14/2020 Exercise Tolerence Test (ETT) 09/20/2021 Exercise Tolerence Test (ETT) 09/24/2023 Exercise Tolerence Test (ETT) 09/23/2022 Atria STRESS 09/20/2021 Atria STRESS 09/23/2022 Atria STRESS 09/24/2023 Atria STRESS 09/14/2020 Atria STRESS 09/15/2019 Atria STRESS 09/14/2018 Atria STRESS 09/11/2017 Atria STRESS 02/05/2016 Atria STRESS 01/20/2015 Insurance Providers Payer Name Payer Address Payer Phone Subscriber Number Group Number Insured Name Patient Relationship to Insured Coverage Start Date Coverage End Date MEDICARE [address] [place] [address] [id number] Yessenia Burt Self - patient is the insured [facility] Indemnity Plan [address] [place] [address] [id number] Yessenia Burt Self - patient is the insured MEDICAL (GENERAL) HISTORY Medical History History ICD Code Hypertension Osteoporosis Reactive Airways Disease
[2024-10-11 10:47] VITALS: BP 132/70; PULSE 75; O2SAT 97; BMI 20.2
--- NOTE | 2024-10-11 10:47 | MHC.OFFVIS ---
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 Patient states that she has had a cough for about 10 years. The cough tends to be hacking in nature. Sometimes she does get some chest congestion and also tickle in her throat and chest. she has tried short-acting beta agonist without any significant improvement of her symptoms. She denies any significant reflux disease. She does feel that she does have a component of a postnasal drip. Her daughter her gotten her nasal saline rinse. But, the patient has not used it. On further questioning the patient does have a history of cardiac disease. 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 She has been on cardioprotective medications for about 10 years. She has been on metoprolol for the same duration. Explained to her the metoprolol as a beta-eddie and some table may be sensitive to the beta eddie specially if there is any evidence of hyperreactive airways and asthma. As part of workup she has had an x-ray without any acute disease. We personally reviewed from [facility]. She does have some healed rib fractures. In addition to that she did have blood work done. No evidence of any significant eosinophilia. The patient has not had formal pulmonary function studies nor allergy testing. 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 She denies any mold in her house although she may have some in the basement. The patient does describe of certain symptoms specially while eating which she may get short of breath. The patient also has a history of iron deficiency anemia. Therefore is reasonable to assess her for celiac disease as this may also precipitate respiratory symptoms. 09/14/2021 the patient is here for a pulmonary follow-up visit. The patient overall is doing about the same. She still having her episodic cough. Moderate severity. We did review her laboratory data without any significant allergic reactions or eosinophilia. We did review her pulmonary function studies together. It appears that she has evidence of small airways disease and therefore likely has a component of hyperreactive airways. She stills takes a beta-eddie and likely that is contributing to some potential bronchospasms and cough. However in addition to that the patient has evidence of a restrictive ventilatory defect with total lung capacity of 78% predicted. In addition to that her diffusing capacity is decreased moderately. the patient's chest x-ray demonstrated no acute disease therefore is really nondiagnostic. Based on her ongoing symptoms and her abnormal pulmonary function studies the patient will benefit from additional imaging. I do believe a CT scan of the chest would be for an and further addressing her ongoing symptoms and now with abnormal pulmonary function studies. 02/08/2022 the patient is here for a pulmonary follow-up visit. Patient overall continues to have her cough. The cough is intermittent and moderate severity. I did provide with rescue inhaler but she has not used it. I will have her nurse again teach her how to use it with a spacer to give her some reassurance an additional guidance. A nurse did spend some time with her answering all her questions and making sure she was comfortable with the inhaler. In the meantime we did review her CT scan of the chest which demonstrated a 1.2 cm pulmonary nodule. This is the only CT scan she has had so that we have no comparisons. Based on the solid nodule in the size and also her ongoing other symptoms of discomfort in her abdomen and also in her left hip it would help to get a PET scan to assess the metabolic activity of the nodule but also to assess if there is any involvement in other areas specially this is a malignant process. I will go ahead and request a PET scan at this time. Will follow-up after the PET scan. In the meantime I do want her to use the inhaler as needed as a trial to see if she has improvement after using the inhaler. also to note, the patient has been having some abdominal discomfort and the CT scan of the chest did demonstrate what appeared to be thickening of the stomach with a diverticulum. Therefore she was referred to GI and awaiting an evaluation. 03/04/2022 the patient is here for a pulmonary follow-up visit. Overall she is nervous about the PET scan results. I did reassure her that the pulmonary nodule did not show any FDG activity which is reassuring. We still need to follow it to make sure that there isn't any discrepancies. However the PET scan did demonstrate that she does have thyroid nodules that need to be further followed up. This made her anxious but she was reassured. explained to her that CT scan is not a good modality for the pulmonary nodules and will need ultrasound of the thyroid. This can be arranged by primary care or the patient may refer to endocrinology. in addition to that she was noted to have some hypermetabolic activity on the stomach area. She does have a GI doctor and hopefully they can evaluate that area further during her visit. In the meantime she does continue with reflux diet and continues the omeprazole which appears to be helping and also diminishing her cough. 07/15/2022 the patient is here for a pulmonary follow-up visit. After the PET scan the patient did follow-up with her primary care doctor and has been getting ultrasound of the thyroid. She also did follow-up with GI doctor regarding the above findings. Nothing concerning was found. The patient does have multiple nodules, 1 nodule measuring 1 cm and the other 1.2 cm. Patient also has large areas pulmonary density measuring 2.6 cm. The patient did have a reassuring PET scan without any significant FDG activity. However patient continues to have cough in addition to some chest discomfort. She does have a positive family history of lung cancer in the family. The patient will go ahead for a CT scan 6 months from her previous 1 which would be August 2022. in the meantime the patient been having episodes of coughing. We talked about trying to use the inhaler. She does have a short-acting beta agonist. She brought in with go to the extractions on how to use it. In addition to that she does complaint of postnasal drip which is typically with liquidy. It causes her to have cough as well. Moderate severity. We talked about the medications again try. She does not like to take anything longstanding. Therefore Atrovent nasal spray may be a good option to treat vasomotor rhinitis and dry up secretions. However, he needs to make sure she does not have any evidence of a coma. She does have a we I would doctor's appointment coming up soon. Therefore, I gave her a prescription and she can take it with her. If her eyes are okay that she can go ahead and start the ipratropium nasal spray as needed. We did a use weather. Patient is also having improving symptoms with reflux diet. The significant heartburn symptoms of she does have atopy. She is also diagnosed with osteopenia. Therefore, the patient needs to be of her omeprazole to avoid further bone loss. She has will try Pepcid. She will need to do with the reflux diet. 09/02/2022 the patient is here for a pulmonary follow-up visit. Overall the patient has been feeling well. She continues to have episodic cough. Usually nonproductive in nature. She did bring her inhaler in we were able to teacher again her use it correctly. She is having some issues with her spacer. Therefore she will use the inhaler without 1. she is not interested in taking any come medications at this time. We again looked at her recent CT scan of the chest that she has had in July 2022. It appears that she does have a areas of mosaic pattern in her trapping. Explained to her that this is consistent with her small airways disease and component of wheezing in cough variant asthma. On examination she did have wheezing. I did encourage her to use the inhaler. After she use the rescue inhaler she had increased cough. Explained to her that does the airways trying to open further from the medication. Her symptoms did improve after using the inhaler. We did review her CT scan also demonstrating stable pulmonary nodules which is reassuring. She has is elongated density in the right middle lobe which is PET negative. Although it is intermediate size. Could be mucus impaction of the airway. The patient also has some bronchiectatic changes. Will go ahead and provide her with a flutter valve to see if she can provide better bronchopulmonary hygiene and mucus clearance. The patient is concerned that she could have cancer. I have reassured her at lease in the CT scan that there is nothing that is progressing changing. Due to the size of the right middle lobe density will plan to repeat the CT scan in 6 months time. 04/11/2023 the patient is here for pulmonary follow-up visit. Overall she is doing well from a respiratory status. The sciatic cough. Mild intermittent. Has not had to use her rescue inhaler. The patient did need to have biopsy of the thyroid nodule. She is awaiting the results. In the meantime she also had a CT scan of the chest which was personally by me from February 2023. It appears some of the nodular densities have improved, although still present. She still has bronchiectatic changes. Will plan to repeat the CT scan in 1 year. 10/09/2023 the patient is here for pulmonary follow-up visit. Overall the patient continues to be able to same. She still complains of a chronic cough. [id number] severity. At times is productive. Does not really respond to the rescue inhaler. Denies any fevers or chills. She denies any chest pains. We did review her last CT scan of the chest from February 2023 with a describe some degree of bronchiectatic changes. Her nodular densities are improve which is reassuring. The patient does work on her reflux diet. Will provide her with a Acapella valve for chest physical therapy. If this is effective than she can continue the bronchopulmonary hygiene. Otherwise the patient should try a course of azithromycin 3 times a week to see if this provides some improvement of her symptoms in view of the bronchiectasis. 05/11/2024 the patient is here for a pulmonary follow-up visit. She is about the same. She is still coughing some chest congestion. Moderate severity. Although she has not been using the rescue inhaler. She does find the Acapella valve a very effective. She also did not take antibiotics. Seems to be more congested today. She did have a CT scan of the chest which we personally reviewed. No significant changes in the bronchiectatic changes. No nodular densities to be concerned about. At this point to believe that she should try the azithromycin based on her bronchiectasis and mucous plugging. I also did instruct her how to use her rescue inhaler and she can use at once or twice a day followed by the Acapella valve for proper chest physical therapy. She also does complain of a postnasal drip. Thin in consistency. [id number] severity. Typically worse in the morning. This point she does not want to take too many medications will just continue to monitor that. [facility] Medical History (Updated 10/13/23 @ 22:51 by Nelson Ruiz MD) Bronchiectasis Gastritis Thyroid nodule Osteoporosis Hypertension Abnormal PFTs (pulmonary function tests) Chronic restrictive lung disease Chronic rhinitis Asthma Chronic cough Surgical History (Updated 02/07/22 @ 11:12 by Rody Waters PA-C) History of tonsillectomy History of colonoscopy Family History (Updated 02/07/22 @ 11:14 by Rody [place] PA-C) Father CVA (cerebral vascular accident) Hypertension Mother Colon polyps Breast cancer Brother Prostate cancer Social History Patient Tobacco Use Status: Never used Tobacco Review of Systems Const Denies night sweats ENT Denies change in voice, Denies lip swelling, Denies mouth pain, Reports nasal congestion, Reports nasal discharge, Reports post nasal drip and Denies tongue swelling Card Denies chest pain Resp Reports cough GI Reports dyspepsia and Reports heartburn Musc Denies no additional complaints Neuro Denies Neuro-related abnormal movements Psych Denies no additional complaints Popeye/Lymph Denies easy bleeding and Denies lymphadenopathy Aller/Immun Denies lip swelling and Denies tongue swelling Physical Exam Vital Signs: Last Vital Signs Pulse 75 10/11/24 10:47 BP 132/70 10/11/24 10:47 Pulse Ox 97 10/11/24 10:47 Oxygen Delivery Method Room Air 10/11/24 10:47 BMI result Body Mass Index 20.2 Const General: alert HEENT General nose exam: Abnormal mucous membranes and turbinates present and Nasal discharge present Throat: Yes cobblestoning Neck Neck: Yes normal visual inspection, Yes full ROM and Yes no lymphadenopathy Chest Chest palpation & inspection: normal inspection of the chest Resp Effort & Inspection: normal respiratory effort Auscultation: no wheezes Cardio Rate: regular rate Rhythm: regular rhythm Heart sounds: S1 normal heart sound present and S2 normal heart sound present GI Palpation (GI): Soft to palpation and nontender Auscultation: normal bowel sounds Skin General skin exam: rashes and/or lesions noted Assessment & Plan Assessment & Plan (1) Right middle lobe pulmonary nodule: Comment: (5x12mm on 11/[address]; significant improvement in 02/2023 Code(s): R91.1 - Solitary pulmonary nodule Category: Medical (2) Chronic rhinitis: Code(s): J31.0 - Chronic rhinitis Category: Medical (3) Asthma: Code(s): J45.909 - Unspecified asthma, uncomplicated Category: Medical Qualifiers: Asthma complication type: uncomplicated Asthma persistence: persistent Asthma severity: moderate Qualified Code(s): J45.40 - Moderate persistent asthma, uncomplicated (4) Chronic cough: Code(s): R05.3 - Chronic cough Category: Medical (5) Chronic restrictive lung disease: Code(s): J98.4 - Other disorders of lung Category: Medical (6) Thyroid nodule: Code(s): E04.1 - Nontoxic single thyroid nodule Category: Medical (7) Bronchiectasis: Code(s): J47.9 - Bronchiectasis, uncomplicated Category: Medical Qualifiers: Bronchiectasis type: uncomplicated Qualified Code(s): J47.9 - Bronchiectasis, uncomplicated Plan HOB elevated PASCUAL as needed start Flovent HFA AM CPT with acapella valve stopped Azithromycin MWF x 3-4 weeks relux diet ( no seltser) CT chest 05/2025 F/U 8 months Orders: Orders CT chest wo IV con 05/09/25 R91.1 - Solitary pulmonary nodule Medications: New fluticasone propionate 44 mcg/actuation administer with spacer 2 puffs inhalation BID 30 days 10.6 grams 4RF Coding Level of Care Code Est Pt Level 4 (94290) Complex EM visit Add On G2211 Diagnoses Right middle lobe pulmonary nodule R91.1 Chronic rhinitis J31.0 Moderate persistent asthma without complication J45.40 Asthma complication type: uncomplicated Asthma persistence: persistent Asthma severity: moderate Chronic cough R05.3 Chronic restrictive lung disease J98.4 Thyroid nodule E04.1 Bronchiectasis without complication J47.9 Bronchiectasis type: uncomplicated Time Spent (min) 17
== END 2024-10-11 11:17 | disposition home or self-care (01) ==
PROVIDERS: PCP Internal Medicine; Visit Provider Hospitalist
DX: R91.1 Solitary pulmonary nodule (principal); J31.0 Chronic rhinitis; J45.40 Moderate persistent asthma, uncomplicated; R05.3 Chronic cough; J98.4 Other disorders of lung; E04.1 Nontoxic single thyroid nodule; J47.9 Bronchiectasis, uncomplicated
CPT/HCPCS: 99214; G2211

== ENCOUNTER → 2024-10-11 10:41 | Outpatient (BNVA) | payer MEDICARE, OTHER, SELFPAY | PROVIDERS: PCP Internal Medicine; Visit Provider Hospitalist | DX: R05.3 Chronic cough (principal); J45.40 Moderate persistent asthma, uncomplicated; J31.0 Chronic rhinitis; R91.1 Solitary pulmonary nodule; J98.4 Other disorders of lung; J47.9 Bronchiectasis, uncomplicated; E04.1 Nontoxic single thyroid nodule; Z80.1 Family history of malignant neoplasm of trachea, bronchus and lung | CPT/HCPCS: 99212 ==

== ENCOUNTER 2025-05-09 09:44 | Outpatient (REF) | payer MEDICARE, OTHER, SELFPAY ==
--- NOTE | ~2025-05-09 | CT_ITS ---
CLINICAL HISTORY: R91.1 - Solitary pulmonary nodule CT chest without contrast Comparison: CT/SR - CT CHEST WITHOUT IV CONTRAST - 04/23/24 09:[address]/SR - CT CHEST WO IV CON - 02/26/23 15:[address]/SR - CT CHEST WITHOUT IV CONTRAST - 07/29/22 15:23 EDT Findings: Normal heart size. Trace pericardial effusion. Calcific coronary artery disease: Mild. No bulky mediastinal lymphadenopathy. Ascending thoracic aorta stable at 3.9 cm. Normal caliber descending thoracic aorta. Stable cystic tubular bronchiectasis right middle lobe.No new developing or suspicious pulmonary nodules demonstrated. Previous nodule within the bronchiectasis is no longer evident. Mild emphysematous changes stable. No pneumothorax or pleural effusions, plaques or calcifications. Stable 4 mm fissural nodule left major fissure image 252 compared to multiple previous exams. This is probably a lymph node. Stable 2 mm pulmonary nodule right middle lobe axial image eighty-one. Central airways are patent. Mild bronchiectasis right middle lobe stable. Stable left thyroid nodule and left thyroid calcification. No chest wall masses. No axillary adenopathy. Limited view of the upper abdomen is normal. No acute fractures or pathologic bone lesions. Impression: 1. Stable cystic and tubular bronchiectasis right middle lobe with no endobronchial nodule demonstrated. Mild emphysematous changes. Stable 2 mm pulmonary nodule right middle lobe. Lungs otherwise clear. 2. Tubular ascending thoracic aorta stable at 3.9 cm. Trace pericardial effusion. Mild calcified coronary artery disease. 3. Stable 1.5 cm left thyroid nodule with adjacent calcification can be correlated with any recent thyroid ultrasound. This document has been electronically signed by: Manas Cheung MD on 05/09/2025 16:24:25
--- OUTSIDE RECORDS SUMMARY | 2025-05-09 10:40 | XMS_ITS | Patient Health Record ---
Author Organization [facility] Address [address] [place] [address] Care Team Providers Care Green Building Design Specialist Name Role Phone PETAR CAMARILLO MD Primary Care Provider Unavail able TrujilloReglali Unavailable [phone] Allergies No Known Allergies Results Component Value Reference Range Notes Urinalysis Reviewed date:07/05/2024 03:26:29 PM Interpretation: Performing Lab: Notes/Report: NITRITE NEG PH 5.0 PROTEIN TR S.G 1.030 WBC NEG GLUCOSE NEG KETONES NEG UROBILINOGEN NEG BILIRUBIN NEG BLOOD TR Urinalysis, Complete-[id number] Reviewed date:07/07/2024 08:58:05 AM Interpretation: Performing Lab:[facility], [employer] [facility], Phone - [phone], Director - Kirti Notes/Report: Specific Craig 1.023 1.005-1.030 pH 5.0 5.0-7.5 Urine-Color Yellow Yellow Appearance Clear Clear WBC Esterase Negative Negative Protein Trace Negative/Trace Glucose Negative Negative Ketones Negative Negative Occult Blood Negative Negative Bilirubin Negative Negative Urobilinogen,Semi-Qn 0.2 0.2-1.0 mg/dL Nitrite, Urine Negative Negative Microscopic Examination Micr oscopic follows if indicated. Microscopic Examination See below: Micr oscopic was indicated and was performed. WBC 0-5 0 - 5 /hpf RBC None seen 0 - 2 /hpf Epithelial Cells (non renal) None seen 0 - 10 /hpf Casts None seen None seen /lpf Bacteria None seen None seen/Few Urine Culture, Routine-[id number] Reviewed date:07/07/2024 08:57:53 AM Interpretation: Performing Lab:[facility], [employer] [place], Phone - [phone], Director - Kirti Notes/Report: Urine Culture, Routine Final report Result 1 No growth PDF Report Reviewed date:07/07/2024 08:57:44 AM Interpretation: Performing Lab:[facility], [address] [facility], Phone - [phone], Director - Kirti Notes/Report: Reason For Referral No Information Medications Medication SIG (Take, Route, Frequency, Duration) Notes Start Date End Date Status Clobetasol Propionate 0.05 % 1 application to affected area Externally TWICE A MONTH; Duration: 90 days 07/02/2023 Active Fosamax 70 MG 1 tablet Orally WEEK LY; Duration: 90 days 07/02/2023 Active Famotidine 40 MG Oral; Duration: 90 Active Alendronate Sodium 70 MG TAKE 1 TABLET B Y MOUTH WEEKLY; Duration: 84 Active Clobetasol Propionate 0.05 % 1 application to affected area Externally EVERY 2 TO 4 WEEKS; Duration: 90 DAYS 12/14/2021 Activ e amLODIPine Besylate 5 MG TAKE 1 TABLET B Y MOUTH EVERY MORNING Diagnosis Unavailable Oral; Duration: 90 days Active Citracal Petites/Vitamin D 200-250 MG-UNIT 1 tablet Orally Twice a day Active Metoprolol Tartrate 50MG 1 ORAL Once a day 012 Active Alendronate Sodium 70 MG 1 tablet 30 min utes before the first food, beverage or medicine of the day with plain water Orally ONCE A WEEK; Duration: 90 days 07/30/2024 Active Metoprolol-HCTZ ER 07/05/2024 Active amLODIPine Besylate 2.5 MG Oral; Duration: 90 Days Active Albuterol Sulfate HFA 108 (90 Base) MCG/ACT INHALE 2 PUFFS BY MOUTH EVERY 6 HOURS NEEDED FOR SHORTNESS OF BREATH OR WHEEZING Inhalation; Duration: 25 Days Active Social History Tobacco Use: Social History Observation Description Date Details (start date - stop date) Never Smoker NA - NA Tobacco Use/Smoking Question Answer Notes Are you a nonsmoker Alcohol Screen (Audit-C) Question Answer Notes Did you have a drink contain ing alcohol in the past year? Yes How often did you have a dri nk containing alcohol in the past year? 2 to 3 times a week (3 points) How many drinks did you have on a typical day when you were drinking in the past year? 1 or 2 drinks (0 point) Points 3 Interpretation Positive Section Notes: Problems Problem Type SNOMED Code ICD Code Onset Dates Problem Status W/U Status Risk Notes Problem Postmenopausal atrophic vaginitis (93925954) Postmenopausal atrophic vaginitis (N95.2) Active confirmed Problem Age-related osteoporosis (835127112) Age-related osteoporosis without current pathological fracture (M81.0) Active confirmed Problem Localized morphea (209394406) 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) Active confirmed Problem Atrophy of vulva (564061994) Atrophy of vulva (N90.5) Active confirmed Problem Functional urinary incontinence (950564216) Functional urinary incontinence (R39.81) Active confirmed Problem Benign essential hypertension (5488635) Essential hypertension, benign (401.1) Active confirmed Major Problem Menopausal symptom (46705183) Symptomatic menopausal or female climacteric states (627.2) Active confirmed Major Problem 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 Diag Problem Acquired keratoderma (007893664) 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) Active confirmed Major Problem 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) (129815276) Disorder of bone and cartilage, unspecified (733.90) Active confirmed Diag Vital Signs Temperature 98.0 degrees Fahrenheit 02/17/2025 Blood pressure diastolic 68 mm Hg 02/17/2025 Height 61.75 in 02/17/2025 Blood pressure systolic 142 mm Hg 02/17/2025 Weight 102 lbs 02/17/2025 BMI 18.81 kg/m2 02/17/2025 Encounters Encounter Location Date Provider Diagnosis [facility] [place] [address] [facility] [address] [address] 07/05/2024 Indira Trujillo Encounter for screening mammogram for malignant neoplasm of breast Z12.31 ; Age-related osteoporosis without current pathological fracture M81.0 ; Lichen sclerosus et atrophicus L90.0 ; Dense breasts, unspecified R92.30 and Encounter for gynecological examination (general) (routine) without abnormal findings Z01.419 [facility] [address] [address] 02/17/2025 Indira Trujillo Mastodynia N64.4 ; Dense breasts, unspecified R92.30 and Age-related osteoporosis without current pathological fracture M81.0 [facility] [address] [place] [address] 07/30/2024 Indira Trujillo [facility] [address] [place] [address] 02/17/2025 Indira Trujillo Assessments Encounter Date Diagnosis (ICD Code) Assessment Notes Treatment Notes Treatment Clinical Notes Section Notes 07/05/2024 Encounter for screening mammogram for malignant neoplasm of breast (ICD-10 - Z12.31) REGULAR MAMMOGRAMS AND SBE'S WERE RECOMMENDED. 02/17/2025 Mastodynia (ICD-10 - N64.4) REASSURED THE PAT THAT HER BREAST EXAM TODAY WAS NORMAL. READ HER MAMMOGRAM REPORT DONE ON 01/12/25 AND REASSURED PAT THAT THIS WAS NORMAL. WEAR A LOOSE BRA TO BED. MOTRIN OR ACETAMINOPHEN NEEDED. OFFERED TO REFER THE PAT TO [facility] FOR FURTHER EVALUATION AND MX BUT SHE REFUSED. 02/17/2025 Dense breasts, unspecified (ICD-10 - R92.30) DISCUSSED DENSE BREASTS ON MAMMOGRAM AND ITS IMPLICATIONS. 3D MAMMOGRAMS WERE RECOMMENDED. HER BREAST CA RISK IS ONLY 14.2% AND THUS SHE DOES NOT QUALIFY FOR BREAST ULTRASOUND OR MRI'S UNLESS ABNORMAL FINDINGS ARE NOTED. REGULAR MAMMOGRAMS AND SBE'S WERE RECOMMENDED. 02/17/2025 Age-related osteoporosis without current pathological fracture (ICD-10 - M81.0) DISCUSSED HER BMD'S FROM 2015 TO 2023, ALL 5 OF THEM. THEY DID NOT SHOW ANY SIGNIFICANT DETERIORATION IN T-SCORES. DISCUSSED OSTEOPOROSIS AND ITS IMPACT ON HER HEALTH. ADEQUATE CALCIUM AND VIT D. WEIGHT BEARING EXERCISES. REPEAT BMD IN 2025. 07/05/2024 Age-related osteoporosis without current pathological fracture (ICD-10 - M81.0) DISCUSSED OSTEOPOROSIS AND ITS NEGATIVE IMPACT ON HER HEALTH. ADEQUATE CALCIUM AND VIT D. WEIGHT BEARING EXERCISES. OSTEO PRECAUTIONS. CONTINUE FOSAMAX UNTIL MAY 2025. REPEAT BMD IN 2024. 07/05/2024 Lichen sclerosus et atrophicus (ICD-10 - L90.0) REASSURED PAT THAT LESION HAS NOT WORSENNED. APPLY CLOBETASOL OINTMENT TWICE MONTHLY. DETAILED INSTRUCTIONS WERE GIVEN. 07/05/2024 Dense breasts, unspecified (ICD-10 - R92.30) DISCUSSED DENSE BREASTS ON MAMMOGRAM AND ITS IMPLICATIONS. 3D MAMMOGRAMS WERE RECOMMENDED. 07/05/2024 Encounter for gynecological examination (general) (routine) without abnormal findings (ICD-10 - Z01.419) NO PAP TESTS. Plan Of Treatment Pending Test Test Name Order Date MAMMOGRAM, SCREENING 06/28/2022 MAMMOGRAM, SCREENING 07/05/2024 MAMMOGRAM, SCREENING 05/04/2018 Bone Density 04/07/2015 Urine Culture and Sensitivity 04/07/2015 Urinalysis 06/12/2020 DIAGNOSTIC MAMMOGRAM, LEFT BREAST 2021 BONE DENSITY 07/02/2023 BONE DENSITY 07/05/2024 BONE DENSITY 06/13/2021 MM Digital Mammo Screening 11/08/2019 MM Digital Mammo Screening 12/21/2020 MM Digital Mammo Screening 06/13/2021 MM Digital Mammo Screening 06/28/2022 MM Digital Mammo Screening 07/05/2024 MM Digital Mammo Screening 07/02/2023 MM Digital Mammo Screening 05/04/2018 Left Breast Ultrasound 10/24/2021 PELVIC ULTRASOUND W/TRANSVAGINAL 021 Next Appt Details Provider Name:Indira Gabriel deb, 07/08/2025 09:10:00 AM, [address] [place] [address], [facility] [address], [place], [address], Insurance Providers Payer Name Payer Address Payer Phone Subscriber Number Group Number Insured Name Patient Relationship to Insured Coverage Start Date Coverage End Date MEDICARE [address] [facility] [place] [place] [id number] THUY LOPEZ Self - patient is the insured [facility] [address] [place] [address] [id number] THUY LOPEZ Self - patient is the insured Medical (General) History Medical History History ICD Code Lichen sclerosus et atrophicus L90.0 Disorder of bone density and structure, unspecified M85.9 Essential (primary) hypertension I10 Menopausal and female climacteric states N95.1 Age-related osteoporosis without current pathological fracture M81.0 Postmenopausal atrophic vaginitis N95.2 Family history of malignant neoplasm of ovary Z80.41 Other abnormal and inconclusive findings on diagnostic imaging of breast R92.8 Inconclusive mammogram R92.2 Mastodynia N64.4 Functional urinary incontinence R39.81 Unspecified lump in the left breast, upp er outer quadrant N63.21 Atrophy of vulva N90.5 Family history of malignant neoplasm of breast Z80.3 Mammographic heterogeneous density, bila teral breasts R92.333 Surgical History Surgery Date(Month/Year) Colonoscopy Tonsillectomy Thyroid Bx-Benign 04/2023 Hospitalization History Reason Date(Month/Year) 3 Vaginal Deliveries
--- OUTSIDE RECORDS SUMMARY | 2025-05-09 10:40 | XMS_ITS ---
Continuity of Care Document (CCD) Created on: May 09, 2025 Javed Yessenia External Reference #: [id number] : [id number] Sex: Female Author Organization [facility] Address [address] [place] [address] Phone [phone] Care Team Providers Care Quality Control Chemist Name Role Phone Stephanie Samuels MD Care Team Information Rece iver [phone] Social History Type Date Description Comments Sex Female Sex Unknown Medical Devices Description No Information Available Encounters Description No Information Available Assessments Description No Information Available Plan of Treatment Future Appointment(s):* 05/20/2025 9:15 am - Nohemy Leblanc M.D. at Main Office Functional Status Description No Information Available Mental Status Description No Information Available Referrals Description No Information Available
== END 2025-05-09 09:45 | disposition home or self-care (01) ==
LOC: HO.CT 09:44
PROVIDERS: PCP Internal Medicine; Visit Provider Hospitalist
DX: R91.1 Solitary pulmonary nodule (principal)
CPT/HCPCS: 71250

== ENCOUNTER 2025-06-09 08:53 | Outpatient (AMB) | payer MEDICARE, OTHER, SELFPAY ==
[2025-06-09 08:56] VITALS: BP 136/64; PULSE 64; O2SAT 98
--- NOTE | 2025-06-09 08:56 | A.OFFVIS_ITS ---
Vital Signs 06/09/25 08:56 Height 5 ft 1 in Weight 105 lb 13.15 oz BMI 20.0 BP 136/64 Blood Pressure Location Lt brachial Position Sitting Pulse 64 Pulse Source Pulse Oximeter Pulse Oximetry (%) 98 Oxygen Delivery Method Room Air Intake Visit Reasons: asthma Behavioral Scientist Required: No Accompanied by: Self / Same As Patient Allergies No Known Allergies Allergy (Verified 06/09/25 08:59) HPI Comments Details: The patient is a 75-year-old woman with a known history of chronic cough. Patient states that she has had a cough for about 10 years. The cough tends to be hacking in nature. Sometimes she does get some chest congestion and also tickle in her throat and chest. she has tried short-acting beta agonist without any significant improvement of her symptoms. She denies any significant reflux disease. She does feel that she does have a component of a postnasal drip. Her daughter her gotten her nasal saline rinse. But, the patient has not used it. On further questioning the patient does have a history of cardiac disease. Her wall taper helper is in [place]. She has been on cardioprotective medications for about 10 years. She has been on metoprolol for the same duration. Explained to her the metoprolol as a beta-eddie and some table may be sensitive to the beta eddie specially if there is any evidence of hyperreactive airways and asthma. As part of workup she has had an x-ray without any acute disease. We personally reviewed from [facility]. She does have some healed rib fractures. In addition to that she did have blood work done. No evidence of any significant eosinophilia. The patient has not had formal pulmonary function studies nor a llergy testing. 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 She denies any mold in her house although she may have some in the basement. The patient does describe of certain symptoms specially while eating which she may get short of breath. The patient also has a history of iron deficiency anemia. Therefore is reasonable to assess her for celiac disease as this may also precipitate respiratory symptoms. 09/14/2021 the patient is here for a pulmonary follow-up visit. The patient overall is doing about the same. She still having her episodic cough. Moderate severity. We did review her laboratory data without any significant allergic reactions or eosinophilia. We did review her pulmonary function studies together. It appears that she has evidence of small airways disease and therefore likely has a component of hyperreactive airways. She stills takes a beta-eddie and likely that is contributing to some potential bronchospasms and cough. However in addition to that the patient has evidence of a restrictive ventilatory defect with total lung capacity of 78% predicted. In addition to that her diffusing capacity is decreased moderately. the patient's chest x-ray demonstrated no acute disease therefore is really nondiagnostic. Based on her ongoing symptoms and her abnormal pulmonary function studies the patient will benefit from additional imaging. I do believe a CT scan of the chest would be for an and further addressing her ongoing symptoms and now with abnormal pulmonary function studies. 02/08/2022 the patient is here for a pulmonary follow-up visit. Patient overall continues to have her cough. The cough is intermittent and moderate severity. I did provide with rescue inhaler but she has not used it. I will have her nurse again teach her how to use it with a spacer to give her some reassurance an additional guidance. A nurse did spend some time with her answering all her questions and making sure she was comfortable with the inhaler. In the meantime we did review her CT scan of the chest which demonstrated a 1.2 cm pulmonary nodule. This is the only CT scan she has had so that we have no comparisons. Based on the solid nodule in the size and also her ongoing other symptoms of discomfort in her abdomen and also in her left hip it would help to get a PET scan to assess the metabolic activity of the nodule but also to assess if there is any involvement in other areas specially this is a malignant process. I will go ahead and request a PET scan at this time. Will follow-up after the PET scan. In the meantime I do want her to use the inhaler as needed as a trial to see if she has improvement after using the inhaler. also to note, the patient has been having some abdominal discomfort and the CT scan of the chest did demonstrate what appeared to be thickening of the stomach with a diverticulum. Therefore she was referred to GI and awaiting an evaluation. 03/04/2022 the patient is here for a pulmonary follow-up visit. Overall she is nervous about the PET scan results. I did reassure her that the pulmonary nodule did not show any FDG activity which is reassuring. We still need to follow it to make sure that there isn't any discrepancies. However the PET scan did demonstrate that she does have thyroid nodules that need to be further followed up. This made her anxious but she was reassured. explained to her that CT scan is not a good modality for the pulmonary nodules and will need ultrasound of the thyroid. This can be arranged by primary care or the patient may refer to endocrinology. in addition to that she was noted to have some hypermetabolic activity on the stomach area. She does have a GI doctor and hopefully they can evaluate that area further during her visit. In the meantime she does continue with reflux diet and continues the omeprazole which appears to be helping and also diminishing her cough. 07/15/2022 the patient is here for a pulmonary follow-up visit. After the PET scan the patient did follow-up with her primary care doctor and has been getting ultrasound of the thyroid. She also did follow-up with GI doctor regarding the above findings. Nothing concerning was found. The patient does have multiple nodules, 1 nodule measuring 1 cm and the other 1.2 cm. Patient also has large areas pulmonary density measuring 2.6 cm. The patient did have a reassuring PET scan without any significant FDG activity. However patient continues to have cough in addition to some chest discomfort. She does have a positive family history of lung cancer in the family. The patient will go ahead for a CT scan 6 months from her previous 1 which would be August 2022. in the meantime the patient been having episodes of coughing. We talked about trying to use the inhaler. She does have a short-acting beta agonist. She brought in with go to the extractions on how to use it. In addition to that she does complaint of postnasal drip which is typically with liquidy. It causes her to have cough as well. Moderate severity. We talked about the medications again try. She does not like to take anything longstanding. Therefore Atrovent nasal spray may be a good option to treat vasomotor rhinitis and dry up secretions. However, he needs to make sure she does not have any evidence of a coma. She does have a we I would doctor's appointment coming up soon. Therefore, I gave her a prescription and she can take it with her. If her eyes are okay that she can go ahead and start the ipratropium nasal spray as needed. We did a use weather. Patient is also having improving symptoms with reflux diet. The significant heartburn symptoms of she does have atopy. She is also diagnosed with osteopenia. Therefore, the patient needs to be of her omeprazole to avoid further bone loss. She has will try Pepcid. She will need to do with the reflux diet. 09/02/2022 the patient is here for a pulmonary follow-up visit. Overall the patient has been feeling well. She continues to have episodic cough. Usually nonproductive in nature. She did bring her inhaler in we were able to teacher again her use it correctly. She is having some issues with her spacer. Therefore she will use the inhaler without 1. she is not interested in taking any come medications at this time. We again looked at her recent CT scan of the chest that she has had in July 2022. It appears that she does have a areas of mosaic pattern in her trapping. Explained to her that this is consistent with her small airways disease and component of wheezing in cough variant asthma. On examination she did have wheezing. I did encourage her to use the inhaler. After she use the rescue inhaler she had increased cough. Explained to her that does the airways trying to open further from the medication. Her symptoms did improve after using the inhaler. We did review her CT scan also demonstrating stable pulmonary nodules which is reassuring. She has is elongated density in the right middle lobe which is PET negative. Although it is intermediate size. Could be mucus impaction of the airway. The patient also has some bronchiectatic changes. Will go ahead and provide her with a flutter valve to see if she can provide better bronchopulmonary hygiene and mucus clearance. The patient is concerned that she could have cancer. I have reassured her at lease in the CT scan that there is nothing that is progressing changing. Due to the size of the right middle lobe density will plan to repeat the CT scan in 6 months time. 04/11/2023 the patient is here for pulmonary follow-up visit. Overall she is doing well from a respiratory status. The sciatic cough. Mild intermittent. Has not had to use her rescue inhaler. The patient did need to have biopsy of the thyroid nodule. She is awaiting the results. In the meantime she also had a CT scan of the chest which was personally by me from February 2023. It appears some of the nodular densities have improved, although still present. She still has bronchiectatic changes. Will plan to repeat the CT scan in 1 year. 10/09/2023 the patient is here for pulmonary follow-up visit. Overall the patient continues to be able to same. She still complains of a chronic cough. Ibit-qd-hoobulmk severity. At times is productive. Does not really respond to the rescue inhaler. Denies any fevers or chills. She denies any chest pains. We did review her last CT scan of the chest from February 2023 with a describe some degree of bronchiectatic changes. Her nodular densities are improve which is reassuring. The patient does work on her reflux diet. Will provide her with a Acapella valve for chest physical therapy. If this is effective than she can continue the bronchopulmonary hygiene. Otherwise the patient should try a course of azithromycin 3 times a week to see if this provides some improvement of her symptoms in view of the bronchiectasis. 05/11/2024 the patient is here for a pulmonary follow-up visit. She is about the same. She is still coughing some chest congestion. Moderate severity. Although she has not been using the rescue inhaler. She does find the Acapella valve a very effective. She also did not take antibiotics. Seems to be more congested today. She did have a CT scan of the chest which we personally reviewed. No significant changes in the bronchiectatic changes. No nodular densities to be concerned about. At this point to believe that she should try the azithromycin based on her bronchiectasis and mucous plugging. I also did instruct her how to use her rescue inhaler and she can use at once or twice a day followed by the Acapella valve for proper chest physical therapy. She also does complain of a postnasal drip. Thin in consistency. Aszz-tw-hqpltkhm severity. Typically worse in the morning. This point she does not want to take too many medications will just continue to monitor that. 06/09/2025 the patient is here for pulmonary follow-up visit. She feels more heaviness in the chest and cough. Moderate severity. She feels like she is getting worse. She did have a CT scan of the chest that we personally reviewed without any acute changes. Pulmonary nodules are stable and she does have some bronchiectatic changes. Although do not appear to be worsening. In no evidence of any mucus plugging. She does have some wheezing on exam therefore likely has an exacerbation of her asthma. Could be from a viral syndrome versus a allergic reaction or hypersensitivity reaction. Will go ahead and request blood work. In the meantime will treat her with Medrol and a course of antibiotics and cases infectious process. The patient also needs to start maintenance inhalers since she is not getting any relief from albuterol. The patient will undergo pulmonary function studies and follow-up. If she has any issues prior to that she will call for an earlier assessment. [facility] Medical History (Updated 06/09/25 @ 20:40 by Nelson Ruiz MD) Bronchiectasis Gastritis Thyroid nodule Osteoporosis Hypertension Abnormal PFTs (pulmonary function tests) Chronic restrictive lung disease Chronic rhinitis Asthma Chronic cough Surgical History (Updated 02/07/22 @ 11:12 by Rody Waters PA-C) History of tonsillectomy History of colonoscopy Family History (Updated 02/07/22 @ 11:14 by Rody Waters PA-C) Father CVA (cerebral vascular accident) Hypertension Mother Colon polyps Breast cancer Brother Prostate cancer Social History Patient Tobacco Use Status: Never used Tobacco Review of Systems Const Denies night sweats ENT Denies change in voice, Denies lip swelling, Denies mouth pain, Reports nasal congestion, Reports nasal discharge, Reports post nasal drip and Denies tongue swelling Card Denies chest pain and Reports dyspnea on exertion Resp Reports cough, Reports dyspnea on exertion and Reports wheezing GI Reports dyspepsia and Reports heartburn Musc Denies no additional complaints Neuro Denies Neuro-related abnormal movements Psych Denies no additional complaints Popeye/Lymph Denies easy bleeding and Denies lymphadenopathy Aller/Immun Denies lip swelling, Denies tongue swelling and Reports wheezing Physical Exam Vital Signs: Last Vital Signs Pulse 64 06/09/25 08:56 BP 136/64 06/09/25 08:56 Pulse Ox 98 06/09/25 08:56 Oxygen Delivery Method Room Air 06/09/25 08:56 BMI result Body Mass Index 20.0 Const General: alert HEENT General nose exam: Abnormal mucous membranes and turbinates present and Nasal discharge present Throat: Yes cobblestoning Neck Neck: Yes normal visual inspection, Yes full ROM and Yes no lymphadenopathy Chest Chest palpation & inspection: normal inspection of the chest Resp Effort & Inspection: normal respiratory effort and prolonged expiratory phase Auscultation: wheezes Cardio Rate: regular rate Rhythm: regular rhythm Heart sounds: S1 normal heart sound present and S2 normal heart sound present GI Palpation (GI): Soft to palpation and nontender Auscultation: normal bowel sounds Skin General skin exam: rashes and/or lesions noted Assessment & Plan Assessment & Plan (1) Right middle lobe pulmonary nodule: Comment: (5x12mm on 11/[address]; significant improvement in 02/2023 Code(s): R91.1 - Solitary pulmonary nodule Category: Medical (2) Chronic rhinitis: Code(s): J31.0 - Chronic rhinitis Category: Medical (3) Asthma: Code(s): J45.909 - Unspecified asthma, uncomplicated Category: Medical Qualifiers: Asthma complication type: with acute exacerbation Asthma persistence: persistent Asthma severity: moderate Qualified Code(s): J45.41 - Moderate persistent asthma with (acute) exacerbation (4) Chronic cough: Code(s): R05.3 - Chronic cough Category: Medical (5) Chronic restrictive lung disease: Code(s): J98.4 - Other disorders of lung Category: Medical (6) Thyroid nodule: Code(s): E04.1 - Nontoxic single thyroid nodule Category: Medical (7) Bronchiectasis: Code(s): J47.9 - Bronchiectasis, uncomplicated Category: Medical Qualifiers: Bronchiectasis type: uncomplicated Qualified Code(s): J47.9 - Bronchiectasis, uncomplicated Plan HOB elevated PASCUAL as needed start Wixela start Medrol pk start Doxycycline CPT with acapella valve relux diet ( no seltser) Bloodwork PFTs F/U 3-4 months Orders: Orders Complete Blood Count Auto Diff Today J47.9 - Bronchiectasis, uncomplicated Resp Allergy Profile Region I Today J47.9 - Bronchiectasis, uncomplicated, R91.1 - Solitary pulmonary nodule Hypersensitive Pneumonitis Prf Today J47.9 - Bronchiectasis, uncomplicated, R91.8 - Other nonspecific abnormal finding of lung field Erythrocyte Sedimentation Rate Today J47.9 - Bronchiectasis, uncomplicated Immunoglobulin E Today J47.9 - Bronchiectasis, uncomplicated Sputum Cult + Gram stain Today J47.9 - Bronchiectasis, uncomplicated, R91.1 - Solitary pulmonary nodule PFT pulmonary function test Today J45.41 - Moderate persistent asthma with (acute) exacerbation Medications: New methylprednisolone (Medrol (Dru)) PO PER PKG DIR 21 ea 0RF 6 days fluticasone propion-salmeterol 250-50 mcg/dose (Wixela Inhub) 1 inh inhalation Q12H 60 ea 11RF 30 days doxycycline hyclate 100 mg PO BID 20 caps 0RF 10 days Coding Level of Care Code Est Pt Level 4 (31001) Complex EM visit Add On G2211 Diagnoses Right middle lobe pulmonary nodule R91.1 Chronic rhinitis J31.0 Moderate persistent asthma with acute exacerbation J45.41 Asthma complication type: with acute exacerbation Asthma persistence: persistent Asthma severity: moderate Chronic cough R05.3 Chronic restrictive lung disease J98.4 Thyroid nodule E04.1 Bronchiectasis without complication J47.9 Bronchiectasis type: uncomplicated Time Spent (min) 18
--- OUTSIDE RECORDS SUMMARY | 2025-06-09 09:43 | XMS_ITS | Patient Health Record ---
Author Organization [facility] Address [address] [place] [address] Care Team Providers Care Cloth Bin Packer Name Role Phone PETAR CAMARILLO MD Primary Care Provider Unavail able Indira Trujillo Unavailable [phone] Allergies No Known Allergies Results Component Value Reference Range Notes PDF Report Reviewed date:07/07/2024 08:57:44 AM Interpretation: Performing Lab:[facility] [place], [address] [place] [address], Phone - [phone], Director - Kirti Notes/Report: Urine Culture, Routine-[id number] Reviewed date:07/07/2024 08:57:53 AM Interpretation: Performing Lab:[facility] [place], [address] [facility], Phone - [phone], Director - Kirti Notes/Report: Urine Culture, Routine Final report Result 1 No growth Urinalysis, Complete-[id number] Reviewed date:07/07/2024 08:58:05 AM Interpretation: Performing Lab:[facility] [place], [address] [facility], Phone - [phone], Director - Kirti Notes/Report: Specific [place] 1.023 1.005-1.030 pH 5.0 5.0-7.5 Urine-Color Yellow [...] seen /lpf Bacteria None seen None seen/Few Urinalysis Reviewed date:07/05/2024 03:26:29 PM Interpretation: Performing Lab: Notes/Report: NITRITE NEG PH 5.0 PROTEIN TR S.G 1.030 WBC NEG GLUCOSE NEG KETONES NEG UROBILINOGEN NEG BILIRUBIN NEG BLOOD TR Reason For Referral No Information Medications Medication [...] Status Risk Notes Problem Postmenopausal atrophic vaginitis (86406272) Postmenopausal atrophic vaginitis (N95.2) Active confirmed Problem Age-related osteoporosis (670071322) Age-related osteoporosis without current pathological fracture (M81.0) Active confirmed Problem Localized morphea (099870381) 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) Active confirmed Problem Atrophy of vulva (895998915) Atrophy of vulva (N90.5) Active confirmed Problem Functional urinary incontinence (029892174) Functional urinary incontinence (R39.81) Active confirmed Problem Benign essential hypertension (1420479) Essential hypertension, benign (401.1) Active confirmed Major Problem Menopausal symptom (74790527) Symptomatic menopausal or female climacteric states (627.2) Active confirmed Major Problem 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 Diag Problem Acquired keratoderma (237119692) 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) Active confirmed Major Problem 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) (573518521) Disorder of bone and cartilage, unspecified (733.90) Active confirmed Diag Vital Signs Temperature 98.0 degrees Fahrenheit 02/17/2025 Blood pressure diastolic 68 mm Hg 02/17/2025 Height 61.75 in 02/17/2025 Blood pressure systolic 142 mm Hg 02/17/2025 Weight 102 lbs 02/17/2025 BMI 18.81 kg/m2 02/17/2025 Encounters Encounter Location Date Provider Diagnosis [facility] [place] [address] [address] [address] 07/05/2024 Indira Trujillo Encounter for screening mammogram for malignant neoplasm of breast Z12.31 ; Age-related osteoporosis without current pathological fracture M81.0 ; Lichen sclerosus et atrophicus L90.0 ; Dense breasts, unspecified R92.30 and Encounter for gynecological examination (general) (routine) without abnormal findings Z01.419 [facility] [address] [address] 02/17/2025 Indira Trujillo Mastodynia N64.4 ; Dense breasts, unspecified R92.30 and Age-related osteoporosis without current pathological fracture M81.0 [facility] [address] [place] [address] 07/30/2024 Indira Trujillo [facility] [address] [place] [address] 02/17/2025 Indira Trujillo Assessments Encounter Date Diagnosis [...] NEEDED. OFFERED TO REFER THE PAT TO [facility] FOR FURTHER EVALUATION AND MX BUT SHE [...] Test Test Name Order Date MAMMOGRAM, SCREENING 05/04/2018 MAMMOGRAM, SCREENING 06/28/2022 MAMMOGRAM, SCREENING 07/05/2024 Bone Density 04/07/2015 Urine Culture and Sensitivity 04/07/2015 Urinalysis 06/12/2020 DIAGNOSTIC MAMMOGRAM, LEFT BREAST 2021 BONE DENSITY 06/13/2021 BONE DENSITY 07/02/2023 BONE DENSITY 07/05/2024 MM Digital Mammo Screening 06/28/2022 MM Digital Mammo Screening 07/05/2024 MM Digital Mammo Screening 07/02/2023 MM Digital Mammo Screening 12/21/2020 MM Digital Mammo Screening 06/13/2021 MM Digital Mammo Screening 05/04/2018 MM Digital Mammo Screening 11/08/2019 Left Breast Ultrasound 10/24/2021 PELVIC ULTRASOUND W/TRANSVAGINAL 021 Next Appt Details Provider Name:Indira Gabriel deb, 07/08/2025 09:10:00 AM, [address] [place] [address], [facility] [address], [place], [address], Insurance Providers Payer Name Payer Address Payer Phone Subscriber Number Group Number Insured Name Patient Relationship to Insured Coverage Start Date Coverage End Date MEDICARE [address] [facility] [id number] THUY LOPEZ Self - patient is the insured [facility] [address] [place] [address] [id number] [id number] Self - patient is the insured Medical [...]
--- OUTSIDE RECORDS SUMMARY | 2025-06-09 09:43 | XMS_ITS | Continuity of Care Document ---
Author Organization [facility] Address [address] [place] [address] Phone [phone] Care Team Providers Care Motor And Generator Brush Maker Name Role Phone Stephanie Samuels MD Care Team Information Rece iver [phone] Stephanie Sameuls M.D. Care Team Information Recei lexx [phone] Indira Trujillo M.D. Care Team Information Rec eiver [phone] Problems Active Problems Provider Date Osteoporosis Nohemy Leblanc M.D. Ons et: 05/20/2025 Essential hypertension Carmina Adorno Onset: 05/20/2025 Gastroesophageal reflux disease Nohemy Ward M.D. Onset: 05/20/2025 Multinodular goiter Nohemy Leblanc M.D. Onset: 05/20/2025 Cough variant asthma Yohana Adorno Onset: 05/20/2025 Social History Type Date Description Comments Sex Female Sex Unknown Lives With Spouse Work Status Retired ETOH Use Occasionally consumes wine Tobacco Use Start: Unknown Patient has never smoked Allergies and adverse reactions Description No Known Drug Allergies Medications Active Medications SIG Qnty Indications Ordering Provider Date Metoprolol Succinate ER50mg Tablets ER 24HR 1 q pm Unknown Temvatgrvj56by Tablets Take 1 Tablet By Mouth AT Bedtime Nelson Ruiz Amlodipine Xkeikcqt6yg Tablets 1qd am Unknown Albuterol Sulfate XKP783(90Base) mcg/Act Aerosol Inhale 2 Puffs By Mouth Every 6 Hours as Needed For Shortness Of Breath Or [place] Nelson Ruiz Clobetasol Propionate0.05% Ointment apply topically to the affected area twice daily as needed Unknown Citracal Petites/Vitamin D200-6.25mg-mcg Tablets 2 by mouth every day Unknown Vital Signs Date Vital Result Comment 05/20/2025 9:21am BP Systolic 136 mmHg BP Diastolic 80 mmHg Heart Rate 74 /min Height 61 inches 5'1 Weight 103.38 lb BMI (Body Mass Index) 19.5 kg/m2 Results Test Acquired Date Facility Test Result H/L Range N ote Comp. Metabolic Panel (14) 05/23/2025 [facility] Glucose 100 mg/dL High 70-99 BUN 14 mg/dL 8-27 Creatinine 0.67 mg/dL 0.57-1.00 eGFR 91 mL/min/1.73 >59 BUN/Creatinine Ratio 21 12-28 Sodium 141 mmol/L 134-144 Potassium 4.4 mmol/L 3.5-5.2 Chloride 102 mmol/L 96-106 Carbon Dioxide, Total 23 mmol/L 20-29 Calcium 9.5 mg/dL 8.7-10.3 Protein, Total 6.3 g/dL 6.0-8.5 Albumin 4.4 g/dL 3.8-4.8 Globulin, Total 1.9 g/dL 1.5-4.5 Bilirubin, Total 0.5 mg/dL 0.0-1 .2 Alkaline Phosphatase 67 IU/L 44-121 Ast (Sgot) 37 IU/L 0-40 Alt (SGPT) 21 IU/L 0-32 PTH, Intact 05/23/2025 [facility] PTH, Intact 36 pg/mL 15-65 Phosphorus 05/23/2025 [facility] Phosphorus 4.0 mg/dL 3.0-4.3 Vitamin D, 25-Hydroxy 05/23/2025 [facility] Vitamin D, 25-Hydroxy 44.4 ng/mL 30.0-100. 0 1 N-Telopeptide, Urine 05/23/2025 [facility] N-Telopeptide 134 nmolBCE Not Estab. Creatinine, Urine 82.9 mg/dL Not Estab. N-Telo/Creat. Ratio 18 nMBCE/mMCr 0-89 Interpretive Guide: See Comment: 2 1 Vitamin D deficiency has been defined by the [place] of Medicine and an Endocrine Society practice guideline as a level of serum 25-OH vitamin D less than 20 ng/mL (1,2). The Endocrine Society went on to further define vitamin D insufficiency as a level between 21 and 29 ng/mL (2). 1. IOM ([place] of Medicine). 2010. Dietary reference intakes for calcium and D. [place]: The National Academies Press. 2. Luisito MF, Destiny PAUL, Vaibhav GRUBBS, et al. Evaluation, treatment, and prevention of vitamin D deficiency: an Endocrine Society clinical practice guideline. JCEM. 2010; 96(7):1911-30. 2 The N-telopeptide an d Creatinine are used to calculate the N-telo/Creat. Ratio which is referred to as NTx . Suggested guidelines for the clinical use of NTx are as follows: 1. Menopausal Women not on Hormone Replacement Therapy (HRT): Women with a baseline NTx value >38 are at significant risk for a decrease in bone mineral density (BMD) after 1 year compared to women on HRT. The probability of a decline in BMD increases with NTx value as follows: (1): Baseline NTx Probability of Decrease in BMD 18- 38 1.4 p=0.28 38- 51 2.5 p=0.03 51- 67 3.8 p=0.0006 67-188 17.3 p=0.0001 2. Menopausal Women Receiving Antiresorptive Therapy: The probability that treatment is effective after three months is increased when the measured NTx value is <or=38 nM BCE/mM ACTIVITY AID, or NTx has decreased >or=30% from baseline.[1] 3. Patients with Paget's Disease of Bone: The probability that treatment is effective after one month is increased when the measured NTx value is within the reference range, or NTx has decreased >or=30% from baseline.[2] 1. Keara CH, Magallon NH, Carlo GS, et al. Am J Med, 102:29-37,1997. (1):M757, 1996. 2. Chintan H, Elli Carpenter, et al. J Bone Min Res.11(1):M757,1996 Medical Devices Description No Information Available Encounters Type Date Location Provider Dx Diagnosis Office Visit 05/20/2025 9:15a Main Office Nohemy Leblanc M.D. M81.0 Age-related osteoporosis w/o current pathological fracture E04.2 Nontoxic multinodula r goiter Assessments Date Code Description Provider 05/20/2025 M81.0 Age-related oste oporosis without current pathological fracture Nohemy Leblanc M.D. 05/20/2025 E04.2 Nontoxic multinodular goiter Nohemy Leblanc M.D. Plan of Treatment Future Appointment(s):* 11/23/2025 1:15 pm - Nohemy Leblanc M.D. at Main Office 05/20/2025 - Nohemy Leblanc M.D.* M81.0 Age-related osteoporosis without current pathological fracture * E04.2 Nontoxic multinodular goiter Functional Status Description No Information Available Mental Status Description No Information Available Referrals Description No Information Available
== END 2025-06-09 09:42 | disposition home or self-care (01) ==
LOC: HO.HPS 08:53
PROVIDERS: PCP Internal Medicine; Visit Provider Hospitalist
DX: R91.1 Solitary pulmonary nodule (principal); J31.0 Chronic rhinitis; J45.41 Moderate persistent asthma with (acute) exacerbation; R05.3 Chronic cough; J98.4 Other disorders of lung; E04.1 Nontoxic single thyroid nodule; J47.9 Bronchiectasis, uncomplicated
CPT/HCPCS: 99214; G2211

== ENCOUNTER → 2025-06-09 08:53 | Outpatient (BNVA) | payer MEDICARE, OTHER, SELFPAY | PROVIDERS: PCP Internal Medicine; Visit Provider Hospitalist | DX: J45.41 Moderate persistent asthma with (acute) exacerbation (principal); J31.0 Chronic rhinitis; J98.4 Other disorders of lung; J47.9 Bronchiectasis, uncomplicated; R91.1 Solitary pulmonary nodule; R05.3 Chronic cough; E04.1 Nontoxic single thyroid nodule | CPT/HCPCS: 99212 ==

== ENCOUNTER 2025-06-20 11:49 | Outpatient (REF) | payer MEDICARE, OTHER, SELFPAY ==
[2025-06-20 12:03] LABS: MANUAL DIFF FLAG NO
[2025-06-20 12:16] LABS: Hematocrit 38.7 % (37.0-47.0); Hemoglobin 13.0 g/dl (12.0-16.0); Imm Gran Abs Auto 0.02 X10*3/uL (0.00-0.03); Imm Gran Pct Auto 0.3 % (0.0-0.4); Lymphocytes Absolute Auto 1.9 X10*3/uL (1.2-4.9); Mean Corpuscular HGB Conc 33.6 g/dl (31.0-35.0); Mean Corpuscular Hemoglobin 30.1 pg (27.0-33.0); Mean Corpuscular Volume 89.6 fL (80.0-98.0); NRBC Abs Auto 0.000 X10*3/uL (0.0-0.012); NRBC Pct Auto 0.0 /100WBC (0.0-0.2); Platelet Count 240 X10*3/uL (160-400); Red Blood Count 4.32 X10*6/uL (4.20-5.50); White Blood Count 5.8 X10*3/uL (4.8-10.8)
--- OUTSIDE RECORDS SUMMARY | 2025-06-20 14:25 | XMS_ITS | Patient Health Record ---
Author Organization [facility] Address [address] [place] [address] Care Team Providers Care Electrophysiology Technician Name Role Phone PETAR CAMARILLO MD Primary Care Provider Unavail able TrujilloReglali Unavailable [phone] Allergies No Known Allergies Results Component Value Reference Range Notes Urinalysis Reviewed date:07/05/2024 03:26:29 PM Interpretation: Performing Lab: Notes/Report: NITRITE NEG PH 5.0 PROTEIN TR S.G 1.030 WBC NEG GLUCOSE NEG KETONES NEG UROBILINOGEN NEG BILIRUBIN NEG BLOOD TR Urinalysis, [id number] Reviewed date:07/07/2024 08:58:05 AM Interpretation: Performing Lab:[facility], [facility], Phone - [phone], Director - Kirti Notes/Report: Specific [place] 1.023 1.005-1.030 pH 5.0 5.0-7.5 Urine-Color Yellow [...] Bacteria None seen None seen/Few Urine Culture, Routine-[id number] Reviewed date:07/07/2024 08:57:53 AM Interpretation: Performing Lab:[facility] [place], [place], Phone - [phone], Director - Kirti Notes/Report: Urine Culture, Routine Final report Result 1 No growth PDF Report Reviewed date:07/07/2024 08:57:44 AM Interpretation: Performing Lab:[facility]ermaine Springer, [facility], Phone - [phone], Director - Kirti Notes/Report: Reason For Referral [...] Status Risk Notes Problem Postmenopausal atrophic vaginitis (55207019) Postmenopausal atrophic vaginitis (N95.2) Active confirmed Problem Age-related osteoporosis (372248595) Age-related osteoporosis without current pathological fracture (M81.0) Active confirmed Problem Localized morphea (719902592) 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) Active confirmed Problem Atrophy of vulva (207315120) Atrophy of vulva (N90.5) Active confirmed Problem Functional urinary incontinence (927949384) Functional urinary incontinence (R39.81) Active confirmed Problem Benign essential hypertension (9929738) Essential hypertension, benign (401.1) Active confirmed Major Problem Menopausal symptom (23959903) Symptomatic menopausal or female climacteric states (627.2) Active confirmed Major Problem Circumscribed scleroderma (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) 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 Diag Problem Acquired keratoderma (132534634) 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) Active confirmed Major Problem 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) (001466097) Disorder of bone and cartilage, unspecified (733.90) Active confirmed Diag Vital Signs Temperature 98.0 degrees Fahrenheit 02/17/2025 Blood pressure diastolic 68 mm Hg 02/17/2025 Height 61.75 in 02/17/2025 Blood pressure systolic 142 mm Hg 02/17/2025 Weight 102 lbs 02/17/2025 BMI 18.81 kg/m2 02/17/2025 Encounters Encounter Location Date Provider Diagnosis [facility] [place] [address] [facility] [address] [address] 07/05/2024 Indira Trujillo Encounter for screening mammogram for malignant neoplasm of breast Z12.31 ; Age-related osteoporosis without current pathological fracture M81.0 ; Lichen sclerosus et atrophicus L90.0 ; Dense breasts, unspecified R92.30 and Encounter for gynecological examination (general) (routine) without abnormal findings Z01.419 [facility] [address] [address] 02/17/2025 Indira Trujillo Mastodynia N64.4 ; Dense breasts, unspecified R92.30 and Age-related osteoporosis without current pathological fracture M81.0 [facility] [address] [place] [address] 07/30/2024 Indira Trujillo Total [address] [place] [address] 02/17/2025 Indira Trujillo Assessments Encounter Date Diagnosis [...] NEEDED. OFFERED TO REFER THE PAT TO [facility] FOR FURTHER EVALUATION AND MX BUT [...] Provider Name:Indira Gabriel deb, 07/08/2025 09:10:00 AM, [address] [place] [address], [facility] [address], [place], [address], Insurance Providers Payer Name Payer Address Payer Phone Subscriber Number Group Number Insured Name Patient Relationship to Insured Coverage Start Date Coverage End Date MEDICARE [address] [facility] [id number] HTUY LOPEZ Self - patient is the insured [facility] [address] [place] [address] [id number] THUY LOPEZ Self - patient is [...]
--- OUTSIDE RECORDS SUMMARY | 2025-06-20 14:26 | XMS_ITS | Continuity of Care Document ---
Author Organization [facility] Address [address] [place] [address] Phone [phone] Care Team Providers Care Neuropathologist Name Role Phone Stephanie Samuels MD Care Team Information Rece iver [phone] Stephanie Samuels M.D. Care Team Information Recei lexx [phone] Indira Trujillo M.D. Care Team Information Rec eiver [phone] Problems Active Problems Provider Date Osteoporosis Nohemy [...] Tablets ER 24HR 1 q pm Unknown Hubyfrrvgg04uj Tablets Take 1 Tablet By Mouth AT Bedtime Nelson Ruiz Amlodipine Xtoywiwi9gg Tablets 1qd am Unknown Albuterol Sulfate XJG971(90Base) mcg/Act Aerosol Inhale 2 Puffs By Mouth [...] D deficiency has been defined by the [place] of Medicine and an Endocrine Society practice guideline as a level of serum 25-OH vitamin D less than 20 ng/mL (1,2). The Endocrine Society went on to further define vitamin D insufficiency as a level between 21 and 29 ng/mL (2). 1. IOM ([place] of Medicine). 2010. Dietary reference intakes for [...] measured NTx value is <or=38 nM BCE/mM PIGS FEET CLEANER, or NTx has decreased >or=30% from baseline.[1] [...]
[2025-06-21 16:49] LABS: Class Alternaria alternata 0; Class Aspergillus fumigatus 0; Class Bermuda Grass 0; Class Birch 0; Class Cat Dander 0; Class Cladosporium herbarum 0; Class Cockroach 0; Class Common Ragweed 0; Class Cottonwood 0; Class Derm. pterony 0; Class Dermatophagoides farinae 0; Class Dog Dander 0; Class Elm 0; Class Maple Box Elder 0; Class Mountain Cedar 0; Class Mouse Urine Protein 0; Class Mugwort 0; Class Oak 0; Class Penicillium crysogenum 0; Class Rough Pigweed 0; Class Sheep Sorrel 0; Class Sycamore 0; Class Timothy Grass 0; Class Walnut Tree 0; Class White Ash 0; Class White Mulberry 0; D002 - IgE D farinae <0.10 kU/L; E001 - IgE Cat Dander <0.10 kU/L; E005 - IgE Dog Dander <0.10 kU/L; G006 - IgE Timothy Grass <0.10 kU/L; I006-IgE Cockroach, German <0.10 kU/L; M002 - IgE Cladosporium herbar <0.10 kU/L; M003 - IgE Aspergillus fumigat <0.10 kU/L; M006 - IgE Alternaria alternat <0.10 kU/L; T001 IgE Maple/Box Elder <0.10 kU/L; T006 - IgE Cedar, Mountain <0.10 kU/L; T007 - IgE Oak, White <0.10 kU/L; T008 IgE Elm, American <0.10 kU/L; T010 - IgE Walnut <0.10 kU/L; T011 - IgE Maple Leaf Sycamore <0.10 kU/L; T014 - IgE Cottonwood <0.10 kU/L; T015 - IgE Ash, White <0.10 kU/L; T070 - IgE White Mulberry <0.10 kU/L; W001 - IgE Ragweed, Short <0.10 kU/L; W006 - IgE Mugwort <0.10 kU/L; W014 IgE Pigweed, Common <0.10 kU/L; W018 IgE Sheep Sorrel <0.10 kU/L
[2025-06-25 12:44] LABS: Asperg fumigatus Precip Abs NEGATIVE (NEGATIVE); Micropoly faeni Abs NEGATIVE (NEGATIVE); Saccharo pora viridis Abs NEGATIVE (NEGATIVE); Thermo candidus Abs NEGATIVE (NEGATIVE)
== END 2025-06-20 11:50 | disposition home or self-care (01) ==
LOC: HO.LAB 11:49
PROVIDERS: PCP Internal Medicine; Visit Provider Hospitalist
DX: J47.9 Bronchiectasis, uncomplicated (principal); R91.8 Other nonspecific abnormal finding of lung field
CPT/HCPCS: 36415; 82785; 85025; 85652; 86003; 86331; 86606; 86609

== ENCOUNTER 2025-06-22 10:41 | Outpatient (AMB) | payer MEDICARE, OTHER, SELFPAY ==
--- OUTSIDE RECORDS SUMMARY | 2025-06-22 13:18 | XMS_ITS | Continuity of Care Document ---
Author Organization [facility] Address [address] [place] [address] Phone [phone] Care Team Providers Care Record Librarian Name Role Phone Stephanie Samuels MD Care Team Information Rece iver [phone] Stephanie Samuels M.D. Care Team Information Recei lexx [phone] Indira Trujillo M.D. Care Team Information Rec eiver [phone] Problems Active Problems Provider Date Osteoporosis Nohemy [...] Tablets ER 24HR 1 q pm Unknown Hnirqxsizf36zb Tablets Take 1 Tablet By Mouth AT Bedtime Nelson Ruiz Amlodipine Bvcdgaqq9nq Tablets 1qd am Unknown Albuterol Sulfate BGS435(90Base) mcg/Act Aerosol Inhale 2 Puffs By Mouth [...] D deficiency has been defined by the [place] of Medicine and an Endocrine Society practice guideline as a level of serum 25-OH vitamin D less than 20 ng/mL (1,2). The Endocrine Society went on to further define vitamin D insufficiency as a level between 21 and 29 ng/mL (2). 1. IOM ([place] of Medicine). 2010. Dietary reference intakes for [...] measured NTx value is <or=38 nM BCE/mM MFTS, or NTx has decreased >or=30% from baseline.[1] [...]
--- OUTSIDE RECORDS SUMMARY | 2025-06-22 13:18 | XMS_ITS | Patient Health Record ---
Author Organization [facility] Address [address] [place] [address] Care Team Providers Care Code Number Stamper Name Role Phone PETAR CAMARILLO MD Primary Care Provider Unavail able TrujilloReglali Unavailable [phone] Allergies No Known Allergies Results Component Value Reference Range Notes Urinalysis Reviewed date:07/05/2024 03:26:29 PM Interpretation: Performing Lab: Notes/Report: NITRITE NEG PH 5.0 PROTEIN TR S.G 1.030 WBC NEG GLUCOSE NEG KETONES NEG UROBILINOGEN NEG BILIRUBIN NEG BLOOD TR Urinalysis, [id number] Reviewed date:07/07/2024 08:58:05 AM Interpretation: Performing Lab:[facility], [facility], Phone - [phone], Director - Kirti Notes/Report: Specific Embudo 1.023 1.005-1.030 pH 5.0 5.0-7.5 Urine-Color Yellow [...] Bacteria None seen None seen/Few Urine Culture, [id number] Reviewed date:07/07/2024 08:57:53 AM Interpretation: Performing Lab:[facility] [place], [facility] [place], Phone - [phone], Director - Kirti Notes/Report: Urine Culture, Routine Final report Result 1 No growth PDF Report Reviewed date:07/07/2024 08:57:44 AM Interpretation: Performing Lab:[facility]ermaine Springer, [address] [facility], Phone - [phone], Director - Kirti Notes/Report: Reason For Referral [...] Status Risk Notes Problem Postmenopausal atrophic vaginitis (49986175) Postmenopausal atrophic vaginitis (N95.2) Active confirmed Problem Age-related osteoporosis (050706480) Age-related osteoporosis without current pathological fracture (M81.0) Active confirmed Problem Localized morphea (350635685) 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) Active confirmed Problem Atrophy of vulva (480767543) Atrophy of vulva (N90.5) Active confirmed Problem Functional urinary incontinence (206471409) Functional urinary incontinence (R39.81) Active confirmed Problem Benign essential hypertension (0423433) Essential hypertension, benign (401.1) Active confirmed Major Problem Menopausal symptom (19781970) Symptomatic menopausal or female climacteric states (627.2) Active confirmed Major Problem Circumscribed scleroderma (669413703) 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 Diag Problem Acquired keratoderma (647883286) 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) Active confirmed Major Problem 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) (020163831) Disorder of bone and cartilage, unspecified (733.90) Active confirmed Diag Vital Signs Temperature 98.0 degrees Fahrenheit 02/17/2025 Blood pressure diastolic 68 mm Hg 02/17/2025 Height 61.75 in 02/17/2025 Blood pressure systolic 142 mm Hg 02/17/2025 Weight 102 lbs 02/17/2025 BMI 18.81 kg/m2 02/17/2025 Encounters Encounter Location Date Provider Diagnosis [facility] [place] [address] [facility] [address] [address] 07/05/2024 Indira Trujillo Encounter for screening mammogram for malignant neoplasm of breast Z12.31 ; Age-related osteoporosis without current pathological fracture M81.0 ; Lichen sclerosus et atrophicus L90.0 ; Dense breasts, unspecified R92.30 and Encounter for gynecological examination (general) (routine) without abnormal findings Z01.419 [facility] [address] [address] 02/17/2025 Indira Trujillo Mastodynia N64.4 ; Dense breasts, unspecified R92.30 and Age-related osteoporosis without current pathological fracture M81.[address] [facility] [address] [place] [address] 07/30/2024 Indira Trujillo Total [address] [place] [address] 02/17/2025 Indira Trujillo Assessments Encounter Date Diagnosis [...] NEEDED. OFFERED TO REFER THE PAT TO [facility] FOR FURTHER EVALUATION AND MX BUT SHE [...] Provider Name:Indira Gabriel deb, 07/08/2025 09:10:00 AM, [address] [place] [address], [facility] [address], [place], [address], Insurance Providers Payer Name Payer Address Payer Phone Subscriber Number Group Number Insured Name Patient Relationship to Insured Coverage Start Date Coverage End Date MEDICARE [address] [facility]cdonald [id number] THUY LOPEZ Self - patient is the insured [facility] [address] [place] [address] [id number] THUY LOPEZ Self - patient is [...]
[2025-06-22 15:22] VITALS: BP 144/68; PULSE 68; O2SAT 98
--- NOTE | 2025-06-22 15:22 | MHC.OFFVIS ---
Vital Signs 06/22/25 15:22 Height 5 ft 1 in Weight 105 lb 13.15 oz BMI 20.0 BP 144/68 H Blood Pressure Location Lt brachial Position Sitting Pulse 68 Pulse Source Pulse Oximeter Pulse Oximetry (%) 98 Oxygen Delivery Method Room Air Intake Visit Reasons: Wixela Teaching Bricklayer Required: No Allergies No Known Allergies Allergy (Verified 06/22/25 15:23) Medication List - Last Reconciled 06/22/25 by Yael De La Torre LPN albuterol sulfate 90 mcg/actuation 2 inhalations inhalation Q6H PRN 30 days amlodipine 5 mg PO QAM calcium carb and citrat-mag ox 200 mg calcium- 50 mg tabs PO clobetasol 0.05% topical DAILY doxycycline hyclate 100 mg PO BID 10 days famotidine 40 mg PO BEDTIME fluticasone propion-salmeterol 250-50 mcg/dose (Wixela Inhub) 1 inh inhalation Q12H 30 days fluticasone propionate 44 mcg/actuation 2 puffs inhalation BID 30 days methylprednisolone (Medrol (Dru)) PO PER PKG DIR 6 days metoprolol succinate ER 50 mg PO DAILY sodium chloride 0.65% (Saline Mist) 1 spray intranasal BID PRN HPI Comments Details: Yessenia was in today for a Wixela teach. She was educated on proper administration, dose, and frequency of medication. She is aware she needs to rinse her mouth after each use. All questions were answered. She said she will take her first dose this pm. She will call back if needed with any further questions. [facility] Medical History (Updated 06/09/25 @ 20:40 by Nelson Ruiz MD) Bronchiectasis Gastritis Thyroid nodule Osteoporosis Hypertension Abnormal PFTs (pulmonary function tests) Chronic restrictive lung disease Chronic rhinitis Asthma Chronic cough Surgical History (Updated 02/07/22 @ 11:12 by Rody Waters PA-C) History of tonsillectomy History of colonoscopy Family History (Updated 02/07/22 @ 11:14 by Rody Waters PA-C) Father CVA (cerebral vascular accident) Hypertension Mother Colon polyps Breast cancer Brother Prostate cancer Social History Patient Tobacco Use Status: Never used Tobacco Physical Exam Vital Signs: Last Vital Signs Pulse 68 06/22/25 15:22 BP 144/68 H 06/22/25 15:22 Pulse Ox 98 06/22/25 15:22 Oxygen Delivery Method Room Air 06/22/25 15:22 BMI result Body Mass Index 20.0 Assessment & Plan Assessment & Plan (1) Asthma: Code(s): J45.909 - Unspecified asthma, uncomplicated Category: Medical Qualifiers: Asthma complication type: with acute exacerbation Asthma persistence: persistent Asthma severity: moderate Qualified Code(s): J45.41 - Moderate persistent asthma with (acute) exacerbation Plan Wixela Doxycyccline Ok to hold Medrol Coding Level of Care Code Established Pt Est Pt Level 1 (49962) Patient Type Established Diagnoses Moderate persistent asthma with acute exacerbation J45.41 Asthma complication type: with acute exacerbation Asthma persistence: persistent Asthma severity: moderate Comment NURSE VISIT ONLY
== END 2025-06-22 11:07 | disposition home or self-care (01) ==
LOC: HO.HPS 10:42
PROVIDERS: PCP Internal Medicine; Visit Provider Hospitalist
DX: J45.41 Moderate persistent asthma with (acute) exacerbation (principal)

== ENCOUNTER → 2025-06-22 10:41 | Outpatient (BNVA) | payer MEDICARE, OTHER, SELFPAY | PROVIDERS: PCP Internal Medicine; Visit Provider Hospitalist | DX: J45.41 Moderate persistent asthma with (acute) exacerbation (principal) | CPT/HCPCS: 99211 ==

== ENCOUNTER 2025-08-11 09:51 | Outpatient (REF) | payer MEDICARE, OTHER, SELFPAY ==
--- NOTE | 2025-08-11 09:53 | PFT_ITS ---
Flows: FEV1: 60 % of predicted at 1.10 L FVC: 59 % of predicted at 1.40 L FEV1/FVC: 79 % Bronchodilator response: Present in small to medium airways only. Volumes: Total lung capacity: 63 % of predicted at 2.76 L Residual volume: 73 % of predicted at 1.38 L Slow vital capacity: 56 % of predicted at 1.38 L Expiratory reserve volume: 87 % of predicted at 0.50 L Diffusion capacity: Moderately decreased, corrects to normal after adjustment for alveolar ventilation. Impression: Moderate restrictive ventilatory defect with bronchodilator response present in small to medium airways only. Combination of restrictive ventilatory defect with decreased diffusion capacity suggests underlying pulmonary parenchymal disease. Clinical correlation is advised. MTDD
[2025-08-11 10:48] VITALS: PULSE 63
--- OUTSIDE RECORDS SUMMARY | 2025-08-11 11:35 | XMS_ITS | Patient Health Record ---
Author Organization [facility] Address [address] [address] Care Team Providers Care It Data Architect Name Role Phone PETAR CAMARILLO MD Primary Care Provider Unavail able Indira Trujillo Unavailable [phone] Allergies No Known Allergies Reason For Referral No Information Medications Medication SIG (Take, Route, Frequency, Duration) Notes Start Date End Date Status Fluticasone-Salmeterol 250-50 MCG/ACT Inhalation; Duration: 90 Days Active amLODIPine Besylate 2.5 MG Oral; Duration: 90 Days Active Clobetasol Propionate 0.05 % 1 application to affected area Externally TWICE A MONTH; Duration: 90 days 07/02/2023 Active Famotidine 40 MG Oral; Duration: 90 Active Citracal Petites/Vitamin D 200-250 MG-UNIT 1 tablet Orally Twice a day Active Metoprolol Tartrate 50MG 1 ORAL Once a day 012 Active Albuterol Sulfate HFA 108 (90 Base) MCG/ACT INHALE 2 PUFFS BY MOUTH EVERY 6 HOURS NEEDED FOR SHORTNESS OF BREATH OR WHEEZING Inhalation; Duration: 25 Days Active amLODIPine Besylate 5 MG TAKE 1 TABLET B Y MOUTH EVERY MORNING Diagnosis Unavailable Oral; Duration: 90 days Active Social History Tobacco Use: Social History Observation Description Date Details (start date - stop date) Never Smoker NA - NA AUDIT-C (Standard) Question Answer Notes Did you have a drink contain ing alcohol in the past year? Yes How often did you have a dri nk containing alcohol in the past year? 2 to 4 times a month (2 points) How many drinks did you have on a typical day when you were drinking in the past year? 1 or 2 drinks (0 point) How often did you have six o r more drinks on one occasion in the past year? Never (0 point) Points 2 Interpretation Negative Tobacco Control (Standard) Question Answer Notes Tobacco use: Nonsmoker Section Notes: Problems Problem Type SNOMED Code ICD Code Onset Dates Problem Status W/U Status Risk Notes Problem Postmenopausal atrophic vaginitis (26479545) Postmenopausal atrophic vaginitis (N95.2) Active confirmed Problem Age-related osteoporosis (644677533) Age-related osteoporosis without current pathological fracture (M81.0) Active confirmed Problem Localized morphea (957884298) 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) Active confirmed Problem Atrophy of vulva (896572142) Atrophy of vulva (N90.5) Active confirmed Problem Functional urinary incontinence (292036420) Functional urinary incontinence (R39.81) Active confirmed Problem Benign essential hypertension (9540240) Essential hypertension, benign (401.1) Active confirmed Major Problem Menopausal symptom (46090935) Symptomatic menopausal or female climacteric states (627.2) Active confirmed Major Problem 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 Diag Problem Acquired keratoderma (600997415) 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) Active confirmed Major Problem 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) (866943119) Disorder of bone and cartilage, unspecified (733.90) Active confirmed Diag Vital Signs Temperature 97.7 degrees Fahrenheit 07/08/2025 Blood pressure diastolic 80 mm Hg 07/08/2025 Height 61.75 in 07/08/2025 Blood pressure systolic 134 mm Hg 07/08/2025 Weight 104 lbs 07/08/2025 BMI 19.17 kg/m2 07/08/2025 Encounters Encounter Location Date Provider Diagnosis Total [address] [address] 02/17/2025 Indira Trujillo Mastodynia N64.4 ; Dense breasts, unspecified R92.30 and Age-related osteoporosis without current pathological fracture M81.[address] [address] 07/08/2025 Indira Trujillo Encounter for gynecological examination (general) (routine) with abnormal findings Z01.411 ; Encounter for screening mammogram for malignant neoplasm of breast Z12.31 ; Age-related osteoporosis without current pathological fracture M81.0 ; Postmenopausal atrophic vaginitis N95.2 ; Lichen sclerosus et atrophicus L90.0 and Dense breasts, unspecified R92.[address] [place] [address] 02/17/2025 Indira Ronnie Assessments Encounter Date Diagnosis (ICD Code) Assessment Notes Treatment Notes Treatment Clinical Notes Section Notes 02/17/2025 Mastodynia (ICD-10 - N64.4) REASSURED THE PAT THAT HER BREAST EXAM TODAY WAS NORMAL. READ HER MAMMOGRAM REPORT DONE ON 01/12/25 AND REASSURED PAT THAT THIS WAS NORMAL. WEAR A LOOSE BRA TO BED. MOTRIN OR ACETAMINOPHEN NEEDED. OFFERED TO REFER THE PAT TO [facility] FOR FURTHER EVALUATION AND MX BUT SHE REFUSED. 02/17/2025 Dense breasts, unspecified (ICD-10 - R92.30) DISCUSSED DENSE BREASTS ON MAMMOGRAM AND ITS IMPLICATIONS. 3D MAMMOGRAMS WERE RECOMMENDED. HER BREAST CA RISK IS ONLY 14.2% AND THUS SHE DOES NOT QUALIFY FOR BREAST ULTRASOUND OR MRI'S UNLESS ABNORMAL FINDINGS ARE NOTED. REGULAR MAMMOGRAMS AND SBE'S WERE RECOMMENDED. 07/08/2025 Encounter for gynecological examination (general) (routine) with abnormal findings (ICD-10 - Z01.411) NO MORE PAP TESTS. 02/17/2025 Age-related osteoporosis without current pathological fracture (ICD-10 - M81.0) DISCUSSED HER BMD'S FROM 2015 TO 2023, ALL 5 OF THEM. THEY DID NOT SHOW ANY SIGNIFICANT DETERIORATION IN T-SCORES. DISCUSSED OSTEOPOROSIS AND ITS IMPACT ON HER HEALTH. ADEQUATE CALCIUM AND VIT D. WEIGHT BEARING EXERCISES. REPEAT BMD IN 2025. 07/08/2025 Encounter for screening mammogram for malignant neoplasm of breast (ICD-10 - Z12.31) REGULAR MAMMOGRAMS AND SBE'S WERE RECOMMENDED. 07/08/2025 Age-related osteoporosis without current pathological fracture (ICD-10 - M81.0) DISCUSSED HER LAST BMD RESULTS, OSTEOPOROSIS AND ITS IMPACT ON HER HEALTH. CONTINUE CARE WITH DR ASHLEIGH FERGUSON. ADEQUATE CALCIUM AND VIT D. WEIGHT BEARING EXERCISES. OSTEO PRECAUTIONS. REPEAT BMD IN 2025. 07/08/2025 Postmenopausal atrophic vaginitis (ICD-10 - N95.2) DISCUSSED FINDINGS, DX AND TX OPTIONS. PAT IS ASYMPTOMATIC. 07/08/2025 Lichen sclerosus et atrophicus (ICD-10 - L90.0) REASSURED PAT THAT LESION HAS NOT RECURRED. APPLY CLOBETASOL OINTMENT JUST ONCE MONTHLY. CHECK VULVA Q 3 MONTHS AND IF RECURRENCE IS NOTED, INCREASE DOSE. 07/08/2025 Dense breasts, unspecified (ICD-10 - R92.30) DISCUSSED DENSE BREASTS ON MAMMOGRAM AND ITS IMPLICATIONS. 3D MAMMOGRAMS WERE RECOMMENDED. Plan Of Treatment Pending Test Test Name Order Date MAMMOGRAM, SCREENING 06/28/2022 MAMMOGRAM, SCREENING 07/05/2024 MAMMOGRAM, SCREENING 05/04/2018 Bone Density 04/07/2015 Urine Culture and Sensitivity 04/07/2015 Urinalysis 06/12/2020 DIAGNOSTIC MAMMOGRAM, LEFT BREAST 2021 BONE DENSITY 07/02/2023 BONE DENSITY 07/05/2024 BONE DENSITY 06/13/2021 BONE DENSITY 07/08/2025 MM Digital Mammo Screening 05/04/2018 MM Digital Mammo Screening 07/08/2025 MM Digital Mammo Screening 11/08/2019 MM Digital Mammo Screening 12/21/2020 MM Digital Mammo Screening 06/13/2021 MM Digital Mammo Screening 06/28/2022 MM Digital Mammo Screening 07/05/2024 MM Digital Mammo Screening 07/02/2023 Left Breast Ultrasound 10/24/2021 PELVIC ULTRASOUND W/TRANSVAGINAL 021 Next Appt Details Provider Name:Indira boyd, 07/12/2026 09:20:00 AM, [address] [place] [address], [address], [place], [address], Insurance Providers Payer Name Payer Address Payer Phone Subscriber Number Group Number Insured Name Patient Relationship to Insured Coverage Start Date Coverage End Date MEDICARE [address] LISAN[place]A [place] COURTNEY [id number] THUY LOPEZ Self - patient is the insured [facility] [address] [place] [address] [id number] THUY LOPEZ Self - patient is [...] Mammographic heterogeneous density, bila teral breasts R92.333 Other specified disorders of bone densit y and structure, multiple sites M85.89 Dense breasts, unspecified R92.30 Surgical History Surgery Date(Month/Year) Colonoscopy Tonsillectomy Thyroid Bx-Benign 04/2023 Hospitalization History Reason Date(Month/Year) 3 Vaginal Deliveries
== END 2025-08-11 09:52 | disposition home or self-care (01) ==
LOC: HO.RESP 09:51
PROVIDERS: PCP Internal Medicine; Visit Provider Hospitalist
DX: J45.41 Moderate persistent asthma with (acute) exacerbation (principal)
CPT/HCPCS: 94060; 94640; 94727; 94729

== ENCOUNTER → 2025-08-11 09:53 | Outpatient (BNV) | payer MEDICARE, OTHER, SELFPAY | PROVIDERS: PCP Internal Medicine; Visit Provider Internal Medicine Pulmonary Disease | DX: J98.4 Other disorders of lung (principal) | CPT/HCPCS: 94060; 94727; 94729 ==

== ENCOUNTER 2025-08-18 13:50 | Outpatient (AMB) | payer MEDICARE, OTHER, SELFPAY ==
--- NOTE | 2025-08-18 13:53 | A.OFFVIS_ITS ---
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 Patient states that she has had a cough for about 10 years. The cough tends to be hacking in nature. Sometimes she does get some chest congestion and also tickle in her throat and chest. she has tried short-acting beta agonist without any significant improvement of her symptoms. She denies any significant reflux disease. She does feel that she does have a component of a postnasal drip. Her daughter her gotten her nasal saline rinse. But, the patient has not used it. On further questioning the patient does have a history of cardiac disease. 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 She has been on cardioprotective medications for about 10 years. She has been on metoprolol for the same duration. Explained to her the metoprolol as a beta-eddie and some table may be sensitive to the beta eddie specially if there is any evidence of hyperreactive airways and asthma. As part of workup she has had an x-ray without any acute disease. We personally reviewed from [facility]. She does have some healed rib fractures. In addition to that she did have blood work done. No evidence of any significant eosinophilia. The patient has not had formal pulmonary function studies nor allergy testing. 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 She denies any mold in her house although she may have some in the basement. The patient does describe of certain symptoms specially while eating which she may get short of breath. The patient also has a history of iron deficiency anemia. Therefore is reasonable to assess her for celiac disease as this may also precipitate respiratory symptoms. 09/14/2021 the patient is here for a pulmonary follow-up visit. The patient overall is doing about the same. She still having her episodic cough. Moderate severity. We did review her laboratory data without any significant allergic reactions or eosinophilia. We did review her pulmonary function studies together. It appears that she has evidence of small airways disease and therefore likely has a component of hyperreactive airways. She stills takes a beta-eddie and likely that is contributing to some potential bronchospasms and cough. However in addition to that the patient has evidence of a restrictive ventilatory defect with total lung capacity of 78% predicted. In addition to that her diffusing capacity is decreased moderately. the patient's chest x-ray demonstrated no acute disease therefore is really nondiagnostic. Based on her ongoing symptoms and her abnormal pulmonary function studies the patient will benefit from additional imaging. I do believe a CT scan of the chest would be for an and further addressing her ongoing symptoms and now with abnormal pulmonary function studies. 02/08/2022 the patient is here for a pulmonary follow-up visit. Patient overall continues to have her cough. The cough is intermittent and moderate severity. I did provide with rescue inhaler but she has not used it. I will have her nurse again teach her how to use it with a spacer to give her some reassurance an additional guidance. A nurse did spend some time with her answering all her questions and making sure she was comfortable with the inhaler. In the meantime we did review her CT scan of the chest which demonstrated a 1.2 cm pulmonary nodule. This is the only CT scan she has had so that we have no comparisons. Based on the solid nodule in the size and also her ongoing other symptoms of discomfort in her abdomen and also in her left hip it would help to get a PET scan to assess the metabolic activity of the nodule but also to assess if there is any involvement in other areas specially this is a malignant process. I will go ahead and request a PET scan at this time. Will follow-up after the PET scan. In the meantime I do want her to use the inhaler as needed as a trial to see if she has improvement after using the inhaler. also to note, the patient has been having some abdominal discomfort and the CT scan of the chest did demonstrate what appeared to be thickening of the stomach with a diverticulum. Therefore she was referred to GI and awaiting an evaluation. 03/04/2022 the patient is here for a pulmonary follow-up visit. Overall she is nervous about the PET scan results. I did reassure her that the pulmonary nodule did not show any FDG activity which is reassuring. We still need to follow it to make sure that there isn't any discrepancies. However the PET scan did demonstrate that she does have thyroid nodules that need to be further followed up. This made her anxious but she was reassured. explained to her that CT scan is not a good modality for the pulmonary nodules and will need ultrasound of the thyroid. This can be arranged by primary care or the patient may refer to endocrinology. in addition to that she was noted to have some hypermetabolic activity on the stomach area. She does have a GI doctor and hopefully they can evaluate that area further during her visit. In the meantime she does continue with reflux diet and continues the omeprazole which appears to be helping and also diminishing her cough. 07/15/2022 the patient is here for a pulmonary follow-up visit. After the PET scan the patient did follow-up with her primary care doctor and has been getting ultrasound of the thyroid. She also did follow-up with GI doctor regarding the above findings. Nothing concerning was found. The patient does have multiple nodules, 1 nodule measuring 1 cm and the other 1.2 cm. Patient also has large areas pulmonary density measuring 2.6 cm. The patient did have a reassuring PET scan without any significant FDG activity. However patient continues to have cough in addition to some chest discomfort. She does have a positive family history of lung cancer in the family. The patient will go ahead for a CT scan 6 months from her previous 1 which would be August 2022. in the meantime the patient been having episodes of coughing. We talked about trying to use the inhaler. She does have a short-acting beta agonist. She brought in with go to the extractions on how to use it. In addition to that she does complaint of postnasal drip which is typically with liquidy. It causes her to have cough as well. Moderate severity. We talked about the medications again try. She does not like to take anything longstanding. Therefore Atrovent nasal spray may be a good option to treat vasomotor rhinitis and dry up secretions. However, he needs to make sure she does not have any evidence of a coma. She does have a we I would doctor's appointment coming up soon. Therefore, I gave her a prescription and she can take it with her. If her eyes are okay that she can go ahead and start the ipratropium nasal spray as needed. We did a use weather. Patient is also having improving symptoms with reflux diet. The significant heartburn symptoms of she does have atopy. She is also diagnosed with osteopenia. Therefore, the patient needs to be of her omeprazole to avoid further bone loss. She has will try Pepcid. She will need to do with the reflux diet. 09/02/2022 the patient is here for a pulmonary follow-up visit. Overall the patient has been feeling well. She continues to have episodic cough. Usually nonproductive in nature. She did bring her inhaler in we were able to teacher again her use it correctly. She is having some issues with her spacer. Therefore she will use the inhaler without 1. she is not interested in taking any come medications at this time. We again looked at her recent CT scan of the chest that she has had in July 2022. It appears that she does have a areas of mosaic pattern in her trapping. Explained to her that this is consistent with her small airways disease and component of wheezing in cough variant asthma. On examination she did have wheezing. I did encourage her to use the inhaler. After she use the rescue inhaler she had increased cough. Explained to her that does the airways trying to open further from the medication. Her symptoms did improve after using the inhaler. We did review her CT scan also demonstrating stable pulmonary nodules which is reassuring. She has is elongated density in the right middle lobe which is PET negative. Although it is intermediate size. Could be mucus impaction of the airway. The patient also has some bronchiectatic changes. Will go ahead and provide her with a flutter valve to see if she can provide better bronchopulmonary hygiene and mucus clearance. The patient is concerned that she could have cancer. I have reassured her at lease in the CT scan that there is nothing that is progressing changing. Due to the size of the right middle lobe density will plan to repeat the CT scan in 6 months time. 04/11/2023 the patient is here for pulmonary follow-up visit. Overall she is doing well from a respiratory status. The sciatic cough. Mild intermittent. Has not had to use her rescue inhaler. The patient did need to have biopsy of the thyroid nodule. She is awaiting the results. In the meantime she also had a CT scan of the chest which was personally by me from February 2023. It appears some of the nodular densities have improved, although still present. She still has bronchiectatic changes. Will plan to repeat the CT scan in 1 year. 10/09/2023 the patient is here for pulmonary follow-up visit. Overall the patient continues to be able to same. She still complains of a chronic cough. [id number] severity. At times is productive. Does not really respond to the rescue inhaler. Denies any fevers or chills. She denies any chest pains. We did review her last CT scan of the chest from February 2023 with a describe some degree of bronchiectatic changes. Her nodular densities are improve which is reassuring. The patient does work on her reflux diet. Will provide her with a Acapella valve for chest physical therapy. If this is effective than she can continue the bronchopulmonary hygiene. Otherwise the patient should try a course of azithromycin 3 times a week to see if this provides some improvement of her symptoms in view of the bronchiectasis. 05/11/2024 the patient is here for a pulmonary follow-up visit. She is about the same. She is still coughing some chest congestion. Moderate severity. Although she has not been using the rescue inhaler. She does find the Acapella valve a very effective. She also did not take antibiotics. Seems to be more congested today. She did have a CT scan of the chest which we personally reviewed. No significant changes in the bronchiectatic changes. No nodular densities to be concerned about. At this point to believe that she should try the azithromycin based on her bronchiectasis and mucous plugging. I also did instruct her how to use her rescue inhaler and she can use at once or twice a day followed by the Acapella valve for proper chest physical therapy. She also does complain of a postnasal drip. Thin in consistency. [id number] severity. Typically worse in the morning. This point she does not want to take too many medications will just continue to monitor that. 06/09/2025 the patient is here for pulmonary follow-up visit. She feels more heaviness in the chest and cough. Moderate severity. She feels like she is getting worse. She did have a CT scan of the chest that we personally reviewed without any acute changes. Pulmonary nodules are stable and she does have some bronchiectatic changes. Although do not appear to be worsening. In no evidence of any mucus plugging. She does have some wheezing on exam therefore likely has an exacerbation of her asthma. Could be from a viral syndrome versus a allergic reaction or hypersensitivity reaction. Will go ahead and request blood work. In the meantime will treat her with Medrol and a course of antibiotics and cases infectious process. The patient also needs to start maintenance inhalers since she is not getting any relief from albuterol. The patient will undergo pulmonary function studies and follow-up. If she has any issues prior to that she will call for an earlier assessment. 08/18/2025 the patient is here for pulmonary follow-up visit. Overall she is doing okay she is trying to stay active and exercise regularly. The patient does try to work on her posture. She did undergo pulmonary function studies which we personally reviewed. Appears to have what appears to be small airways disease and history of asthma in addition to that she has a moderate restrictive ventilatory defect. Some clear although she does have kyphoscoliosis. I did look at her CT scan of the chest that she had in April 2025 which demonstrated some degree of kyphoscoliosis. No significant scarring of the lungs she does have some bronchiectatic changes but nothing too significant to explain the degree of restriction. Still the patient is doing well and does not appear to be any significant progression of disease based on her PFTs from 2020. We did talk about stretching exercises for her back and working on posture. In the meantime she did not like the Wixela inhaler as it caused her some thrush. Did not tolerate the powder. I did give her a prescription for Symbicort and she will try to use the lowest most effective dose to see if this provides relief specially since she does have a significant response to bronchodilators based on the small airway response. In addition to that to note during the PFTs she did injure her mouth gingiva on the hard palate therefore I will send a chlorhexidine mouthwash to see if this alleviates any discomfort. [facility] Medical History (Updated 08/18/25 @ 20:13 by Nelson Ruiz MD) Allergies Bronchiectasis Gastritis Thyroid nodule Osteoporosis Hypertension Abnormal PFTs (pulmonary function tests) Chronic restrictive lung disease Chronic rhinitis Asthma Chronic cough Surgical History (Updated 02/07/22 @ 11:12 by Rody Waters PA-C) History of tonsillectomy History of colonoscopy Family History (Updated 02/07/22 @ 11:14 by Rody Waters PA-C) Father CVA (cerebral vascular accident) Hypertension Mother Colon polyps Breast cancer Brother Prostate cancer Social History Patient Tobacco Use Status: Never used Tobacco Review of Systems Const Denies night sweats ENT Denies change in voice, Denies lip swelling, Denies mouth pain, Reports nasal congestion, Reports nasal discharge, Reports post nasal drip and Denies tongue swelling Card Denies chest pain and Reports dyspnea on exertion Resp Reports cough, Reports dyspnea on exertion and Reports wheezing GI Reports dyspepsia and Reports heartburn Musc Denies no additional complaints Neuro Denies Neuro-related abnormal movements Psych Denies no additional complaints Popeye/Lymph Denies easy bleeding and Denies lymphadenopathy Aller/Immun Denies lip swelling, Denies tongue swelling and Reports wheezing Physical Exam Vital Signs: Last Vital Signs Pulse 82 08/18/25 13:54 BP 120/50 L 08/18/25 13:54 Pulse Ox 96 08/18/25 13:54 Oxygen Delivery Method Room Air 08/18/25 13:54 BMI result Body Mass Index 20.0 Const General: alert HEENT General nose exam: Abnormal mucous membranes and turbinates present and Nasal discharge present Mouth: Abnormal oral and palatal mucosa present erythematous (hard palate) Throat: Yes cobblestoning Neck Neck: Yes normal visual inspection, Yes full ROM and Yes no lymphadenopathy Chest Chest palpation & inspection: normal inspection of the chest Resp Effort & Inspection: normal respiratory effort Auscultation: no wheezes and diminished lung sounds Cardio Rate: regular rate Rhythm: regular rhythm Heart sounds: S1 normal heart sound present and S2 normal heart sound present GI Palpation (GI): Soft to palpation and nontender Auscultation: normal bowel sounds Skin General skin exam: rashes and/or lesions noted Assessment & Plan Assessment & Plan (1) Right middle lobe pulmonary nodule: Comment: (5x12mm on 11/[address]; significant improvement in 02/2023 Code(s): R91.1 - Solitary pulmonary nodule Category: Medical (2) Chronic rhinitis: Code(s): J31.0 - Chronic rhinitis Category: Medical (3) Asthma: Code(s): J45.909 - Unspecified asthma, uncomplicated Category: Medical Qualifiers: Asthma complication type: uncomplicated Asthma persistence: persistent Asthma severity: moderate Qualified Code(s): J45.40 - Moderate persistent asthma, uncomplicated (4) Chronic cough: Code(s): R05.3 - Chronic cough Category: Medical (5) Chronic restrictive lung disease: Code(s): J98.4 - Other disorders of lung Category: Medical (6) Thyroid nodule: Code(s): E04.1 - Nontoxic single thyroid nodule Category: Medical (7) Bronchiectasis: Code(s): J47.9 - Bronchiectasis, uncomplicated Category: Medical Qualifiers: Bronchiectasis type: uncomplicated Qualified Code(s): J47.9 - Bronchiectasis, uncomplicated (8) Allergies: Code(s): T78.40XA - Allergy, unspecified, initial encounter Category: Medical Qualifiers: Encounter type: initial encounter Qualified Code(s): T78.40XA - Allergy, unspecified, initial encounter Plan HOB elevated PASCUAL as needed start Symbicort 1 puff CPT with acapella valve relux diet ( no seltser) Bloodwork Chlorhexidine MW for mouth irritation ?mouth piece from PFT Allergy eval for scratch testing CXR F/U 6 months Orders: Orders XR chest 2V Today J98.4 - Other disorders of lung Referrals Allergy & Immunology Referral J45.909 - Unspecified asthma, uncomplicated, T78.40XA - Allergy, unspecified, initial encounter Medications: New chlorhexidine gluconate 0.12% 15 mL buccal BID 473 mL 0RF 14 days budesonide-formoterol 80-4.5 mcg/actuation (Symbicort) 2 puffs inhalation BID 10.2 grams 4RF 30 days Refilled albuterol sulfate 90 mcg/actuation 2 inhalations inhalation Q6H PRN 18 grams 12RF shortness of breath or wheezing 30 days J44.9 - Chronic obstructive pulmonary disease, unspecified Coding Level of Care Code Est Pt Level 4 (77820) Complex EM visit Add On G2211 Diagnoses Right middle lobe pulmonary nodule R91.1 Chronic rhinitis J31.0 Moderate persistent asthma without complication J45.40 Asthma complication type: uncomplicated Asthma persistence: persistent Asthma severity: moderate Chronic cough R05.3 Chronic restrictive lung disease J98.4 Thyroid nodule E04.1 Bronchiectasis without complication J47.9 Bronchiectasis type: uncomplicated Allergy, initial encounter T78.40XA Encounter type: initial encounter Time Spent (min) 18
[2025-08-18 13:54] VITALS: BP 120/50; PULSE 82; O2SAT 96
--- OUTSIDE RECORDS SUMMARY | 2025-08-18 16:53 | XMS_ITS | Continuity of Care Document ---
Author Organization [facility] Address [address] [place] [address] Phone [phone] Care Team Providers Care Materials Clerk Name Role Phone Stephanie Samuels MD Care Team Information Rece iver [phone] Stephanie Samuels M.D. Care Team Information Recei lexx [phone] Indira Trujillo M.D. Care Team Information Rec eiver [phone] Problems Active Problems Provider Date Osteoporosis Nohemy [...] Tablets ER 24HR 1 q pm Unknown [id number] Tablets Take 1 Tablet By Mouth AT Bedtime Nelson Ruiz Amlodipine [id number] Tablets 1qd am Unknown Albuterol Sulfate [id number](90Base) mcg/Act Aerosol Inhale 2 Puffs By Mouth [...] D deficiency has been defined by the Wright of Medicine and an Endocrine Society practice guideline as a level of serum 25-OH vitamin D less than 20 ng/mL (1,2). The Endocrine Society went on to further define vitamin D insufficiency as a level between 21 and 29 ng/mL (2). 1. IOM (Wright of Medicine). 2010. Dietary reference intakes for [...] measured NTx value is <or=38 nM BCE/mM ROOF SHINGLER, or NTx has decreased >or=30% from baseline.[1] [...]
--- OUTSIDE RECORDS SUMMARY | 2025-08-18 16:53 | XMS_ITS | Patient Health Record ---
Author Organization [email or web address] [facility] (Formerly [facility]) Address [address] [address] Care Team Providers Care Supervisor Logging Name Role Phone PETAR CAMARILLO MD Primary Care Provider Unavail able Indira Trujillo Unavailable [phone] Allergies No Known Allergies Reason For Referral [...] Status Risk Notes Problem Postmenopausal atrophic vaginitis (09790785) Postmenopausal atrophic vaginitis (N95.2) Active confirmed Problem Age-related osteoporosis (764117611) Age-related osteoporosis without current pathological fracture (M81.0) Active confirmed Problem Localized morphea (786875965) 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) Active confirmed Problem Atrophy of vulva (044692543) Atrophy of vulva (N90.5) Active confirmed Problem Functional urinary incontinence (498293361) Functional urinary incontinence (R39.81) Active confirmed Problem Benign essential hypertension (8465407) Essential hypertension, benign (401.1) Active confirmed Major Problem Menopausal symptom (35508867) Symptomatic menopausal or female climacteric states (627.2) Active confirmed Major Problem 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 Diag Problem Acquired keratoderma (323253091) 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) Active confirmed Major Problem 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) (512032953) Disorder of bone and cartilage, unspecified (733.90) Active confirmed Diag Vital Signs Temperature 97.7 degrees Fahrenheit 07/08/2025 Blood pressure diastolic 80 mm Hg 07/08/2025 Height 61.75 in 07/08/2025 Blood pressure systolic 134 mm Hg 07/08/2025 Weight 104 lbs 07/08/2025 BMI 19.17 kg/m2 07/08/2025 Encounters Encounter Location Date Provider Diagnosis Total [address] [address] 02/17/2025 Indira Trujillo Mastodynia N64.4 ; Dense breasts, unspecified R92.30 and Age-related osteoporosis without current pathological fracture M81.[address] [address] 07/08/2025 Indira Trujillo Encounter for gynecological examination (general) (routine) with abnormal findings Z01.411 ; Encounter for screening mammogram for malignant neoplasm of breast Z12.31 ; Age-related osteoporosis without current pathological fracture M81.0 ; Postmenopausal atrophic vaginitis N95.2 ; Lichen sclerosus et atrophicus L90.0 and Dense breasts, unspecified R92.[address] [place] [address] 02/17/2025 Indira Ronnie Assessments Encounter Date Diagnosis (ICD Code) Assessment Notes Treatment Notes Treatment Clinical Notes Section Notes 02/17/2025 Mastodynia (ICD-10 - N64.4) REASSURED THE PAT THAT HER BREAST EXAM TODAY WAS NORMAL. READ HER MAMMOGRAM REPORT DONE ON 01/12/25 AND REASSURED PAT THAT THIS WAS NORMAL. WEAR A LOOSE BRA TO BED. MOTRIN OR ACETAMINOPHEN NEEDED. OFFERED TO REFER THE PAT TO [facility] FOR FURTHER EVALUATION AND MX BUT SHE [...] 06/13/2021 BONE DENSITY 07/02/2023 BONE DENSITY 07/05/2024 BONE DENSITY 07/08/2025 MM Digital Mammo Screening 06/28/2022 MM Digital Mammo Screening 07/08/2025 MM Digital Mammo Screening 07/05/2024 MM Digital Mammo Screening 07/02/2023 MM Digital Mammo Screening 12/21/2020 MM Digital Mammo Screening 06/13/2021 MM Digital Mammo Screening 05/04/2018 MM Digital Mammo Screening 11/08/2019 Left Breast Ultrasound 10/24/2021 PELVIC ULTRASOUND W/TRANSVAGINAL 021 Next Appt Details Provider Name:Indira boyd, 07/12/2026 09:20:00 AM, [address] [place] [address], [address], [place], [address], Insurance Providers Payer Name Payer Address Payer Phone Subscriber Number Group Number Insured Name Patient Relationship to Insured Coverage Start Date Coverage End Date MEDICARE [address] LISAN[place]A [place] COURTNEY [id number] [phone] [id number] THUY LOPEZ Self - patient is the insured [facility] [address] [place] [address] [id number] THUY LOPEZ Self - patient is [...]
== END 2025-08-18 14:37 | disposition home or self-care (01) ==
LOC: HO.HPS 13:51
PROVIDERS: PCP Internal Medicine; Visit Provider Hospitalist
DX: R91.1 Solitary pulmonary nodule (principal); J31.0 Chronic rhinitis; J45.40 Moderate persistent asthma, uncomplicated; R05.3 Chronic cough; J98.4 Other disorders of lung; E04.1 Nontoxic single thyroid nodule; J47.9 Bronchiectasis, uncomplicated; T78.40XA Allergy, unspecified, initial encounter
CPT/HCPCS: 99214; G2211

== ENCOUNTER → 2025-08-18 13:50 | Outpatient (BNVA) | payer MEDICARE, OTHER, SELFPAY | PROVIDERS: PCP Internal Medicine; Visit Provider Hospitalist | DX: J47.9 Bronchiectasis, uncomplicated (principal); J45.40 Moderate persistent asthma, uncomplicated; R91.1 Solitary pulmonary nodule; J31.0 Chronic rhinitis; R05.3 Chronic cough; J98.4 Other disorders of lung; E04.1 Nontoxic single thyroid nodule; T78.40XA Allergy, unspecified, initial encounter | CPT/HCPCS: 99212 ==